=== PATIENT | female | born 1930 | race Caucasian/White ===

== ENCOUNTER → 2016-09-13 | Outpatient (REF) | payer MEDICARE ==
[~2016-09-13] MED LIST: DIOV320T; ESTR1TAB; HYDR25TA6; MAALOX; METAMUCIL; THERGRAN; TYL; TYLE500T53; VOLT75TA; actonel
[2016-09-13 15:22] LABS: PERCENT SATURATION 16.8 % (13.2-37.4)
== END ==
LOC: M LAB REF 14:58
PROVIDERS: ATTEND Internal Medicine
DX: M06.9 Rheumatoid arthritis, unspecified (principal); Z79.899 Other long term (current) drug therapy; Z98.890 Other specified postprocedural states

== ENCOUNTER 2017-08-28 16:50 | Emergency (ER) | payer MEDICARE ==
[2017-08-28 17:39] LABS: BASO % 0.1 % (0.0-1.0); HEMATOCRIT 29.6 % (36.0-47.0); HEMOGLOBIN 10.3 g/dl (12.0-15.5); IMMATURE GRANULOCYTE % 0.6 % (0-3.0); LYMPH # 0.9 10^3/uL (1.5-4.5); LYMPH % 4.2 % (24.0-44.0); MEAN CORPUSCULAR HEMOGLOBIN 32.8 pg (27.0-33.0); MEAN CORPUSCULAR HGB CONC 34.8 g/dl (32.0-36.5); MEAN CORPUSCULAR VOLUME 94.3 fl (80.0-96.0); MONO # 1.4 10^3/uL (0.0-0.8); MONO % 6.6 % (0.0-5.0); NEUTROPHILS % 88.5 % (36.0-66.0); PLATELET COUNT, AUTOMATED 214 10^3/uL (150-450); RED BLOOD COUNT 3.14 10^6/uL (4.00-5.40); RED CELL DISTRIBUTION WIDTH 11.9 % (11.5-14.5); WHITE BLOOD COUNT 21.5 10^3/uL (4.0-10.0)
[2017-08-28] MEDS: NS 500 ML IV (17:40)
[2017-08-28] MEDS: fentaNYL 100 MCG/2 ML INJECTION (J3010) IV (17:42)
[2017-08-28] MEDS: ONDANSETRON 4MG/2ML VIAL (J2405) IV (17:42)
[2017-08-28 18:13] LABS: ALBUMIN 3.6 GM/DL (3.2-5.2); ALBUMIN/GLOBULIN RATIO 1.71 (1.00-1.93); ALKALINE PHOSPHATASE 65 U/L (45-117); ALT/SGPT 18 U/L (12-78); ANION GAP 12 MEQ/L (8-16); AST/SGOT 30 U/L (7-37); BILIRUBIN,DIRECT 0.3 MG/DL (0.0-0.2); BLOOD UREA NITROGEN 20 MG/DL (7-18); CALCIUM LEVEL 8.9 MG/DL (8.8-10.2); CARBON DIOXIDE LEVEL 26 MEQ/L (21-32); CHLORIDE LEVEL 103 MEQ/L (98-107); CPK CREATINE PHOSPHOKINASE 375 U/L (26-192); CREATININE FOR GFR 1.24 MG/DL (0.55-1.30); GLOMERULAR FILTRATION RATE 43.8 (>32); GLUCOSE, FASTING 170 MG/DL (70-100); POTASSIUM SERUM 3.7 MEQ/L (3.5-5.1); SODIUM LEVEL 141 MEQ/L (136-145); TOTAL PROTEIN 5.7 GM/DL (6.4-8.2); TROPONIN I 0.73 NG/ML (< 0.10)
[2017-08-28 18:14] LABS: CK-MB VALUE MASS 16.8 NG/ML (<3.6); MB/CK RELATIVE INDEX 4.48 (< OR =4)
[2017-08-28] MEDS: MORPHINE 2 MG/ML 1ML SYRINGE (J2270) IV ×2 (18:39→20:30)
[2017-08-28] MEDS: NS 1,000 ML IV ×2 (18:39→21:19)
[2017-08-28 18:49] LABS: INR 1.03; PROTHROMBIN TIME 13.6 SECONDS (12.4-14.5)
[2017-08-28 18:50] LABS: PARTIAL THROMBOPLASTIN TIME 25.9 SECONDS (26.8-37.9)
[2017-08-28 20:21] LABS: CK-MB VALUE MASS 20.1 NG/ML (<3.6); CPK CREATINE PHOSPHOKINASE 436 U/L (26-192); MB/CK RELATIVE INDEX 4.61 (< OR =4); TROPONIN I 1.26 NG/ML (< 0.10)
== END 2017-08-28 21:46 | disposition short-term general hospital (02) ==
LOC: M ED 16:50
DX: S72.141A Displaced intertrochanteric fracture of right femur, initial encounter for closed fracture (principal); W01.0XXA Fall on same level from slipping, tripping and stumbling without subsequent striking against object, initial encounter; Y92.003 Bedroom of unspecified non-institutional (private) residence as the place of occurrence of the external cause; I45.10 Unspecified right bundle-branch block; I10 Essential (primary) hypertension; F17.210 Nicotine dependence, cigarettes, uncomplicated; M06.9 Rheumatoid arthritis, unspecified; Z88.0 Allergy status to penicillin; Z79.899 Other long term (current) drug therapy; Z98.890 Other specified postprocedural states
CPT/HCPCS: J2405

== ENCOUNTER 2017-09-04 15:35 | Inpatient (IN) | payer MEDICARE ==
[~2017-09-04 15:35] MED LIST changes: +BISACODYL 10 MG SUPP PR; +CALCIUM CARBONATE 500 MG CHEW U/D PO; -DIOV320T; -ESTR1TAB; -HYDR25TA6; -MAALOX; +MAALOX 30 ML SUSP *UDC PO; -METAMUCIL; +METAMUCIL (PSYLLIUM) PACKET PO; -THERGRAN; -TYL; -TYLE500T53; -VOLT75TA; -actonel
[2017-09-04] MEDS ORDERED: PILL CRUSHER/CUTTER 1 EACH XX (17:00)
[2017-09-04] MEDS: ACETAMINOPHEN 500 MG TAB PO (17:47)
[2017-09-04] MEDS: SENNA 8.6 MG TAB (SENOKOT) PO (21:00)
[2017-09-04] MEDS: oxyCODONE 5MG TAB PO (23:35)
[2017-09-05] MEDS: ACETAMINOPHEN 500 MG TAB PO ×3 (06:39→18:15)
[2017-09-05 06:43] LABS: BASO % 0.1 % (0.0-1.0); EOS # 0.3 10^3/uL (0.0-0.50); EOS % 3.9 % (0.0-3.0); HEMATOCRIT 22.9 % (36.0-47.0); HEMOGLOBIN 7.6 g/dl (12.0-15.5); IMMATURE GRANULOCYTE % 2.4 % (0-3.0); LYMPH # 1.6 10^3/uL (1.5-4.5); LYMPH % 19.8 % (24.0-44.0); MEAN CORPUSCULAR HEMOGLOBIN 33.2 pg (27.0-33.0); MEAN CORPUSCULAR HGB CONC 33.2 g/dl (32.0-36.5); MONO % 12.3 % (0.0-5.0); NEUTROPHILS # 5.1 10^3/uL (1.8-7.7); NEUTROPHILS % 61.5 % (36.0-66.0); PLATELET COUNT, AUTOMATED 193 10^3/uL (150-450); RED BLOOD COUNT 2.29 10^6/uL (4.00-5.40); RED CELL DISTRIBUTION WIDTH 14.6 % (11.5-14.5); WHITE BLOOD COUNT 8.3 10^3/uL (4.0-10.0)
[2017-09-05 07:01] LABS: ALBUMIN 1.9 GM/DL (3.2-5.2); ALBUMIN/GLOBULIN RATIO 0.76 (1.00-1.93); ALKALINE PHOSPHATASE 78 U/L (45-117); ALT/SGPT 44 U/L (12-78); ANION GAP 8 MEQ/L (8-16); AST/SGOT 52 U/L (7-37); BILIRUBIN,TOTAL 1.2 MG/DL (0.2-1.0); BLOOD UREA NITROGEN 14 MG/DL (7-18); CALCIUM LEVEL 7.5 MG/DL (8.8-10.2); CARBON DIOXIDE LEVEL 26 MEQ/L (21-32); CHLORIDE LEVEL 112 MEQ/L (98-107); GLOMERULAR FILTRATION RATE > 60.0 (>32); GLUCOSE, FASTING 88 MG/DL (70-100); POTASSIUM SERUM 3.7 MEQ/L (3.5-5.1); SODIUM LEVEL 146 MEQ/L (136-145); TOTAL PROTEIN 4.4 GM/DL (6.4-8.2)
[2017-09-05] MEDS ORDERED: ESTRADIOL 1 MG TAB PO (09:00)
[2017-09-05] MEDS ORDERED: VALSARTAN 80 MG TAB (DIOVAN) PO (09:00)
[2017-09-05] MEDS: ASCORBIC ACID 500 MG TAB PO (09:16)
[2017-09-05] MEDS: MULTIVITAMINS/MINERALS THERAP 1 TAB PO (09:17)
[2017-09-05] MEDS: VITAMIN D 1,000 INTERNATIONAL UNITS TABLET PO (09:17)
[2017-09-05] MEDS: HYDROXYCHLOROQUINE 200 MG TAB PO (09:17)
[2017-09-05] MEDS: LORATADINE 10 MG TAB PO (09:17)
[2017-09-05] MEDS: ENOXAPARIN 40 MG/0.4 ML SYRINGE (J1650) SC (09:17)
[2017-09-05] MEDS: MIRALAX *UNIT DOSE* 17GM PACKET PO (09:17)
[2017-09-05] MEDS: CEPHALEXIN 500 MG CAP PO ×2 (12:31→20:21)
[2017-09-05 14:58] LABS: IMMEDIATE SPIN CROSSMATCH 1 2
[2017-09-05] MEDS: SENNA 8.6 MG TAB (SENOKOT) PO (20:21)
[2017-09-05] MEDS: LACTOBACILLUS ACIDOPHILUS CAP (BACID) PO (20:21)
[2017-09-06] MEDS: oxyCODONE 5MG TAB PO (03:54)
[2017-09-06 06:24] LABS: HEMATOCRIT 32.5 % (36.0-47.0); MEAN CORPUSCULAR HEMOGLOBIN 32.4 pg (27.0-33.0); MEAN CORPUSCULAR HGB CONC 34.5 g/dl (32.0-36.5); MEAN CORPUSCULAR VOLUME 93.9 fl (80.0-96.0); PLATELET COUNT, AUTOMATED 234 10^3/uL (150-450); RED BLOOD COUNT 3.46 10^6/uL (4.00-5.40); RED CELL DISTRIBUTION WIDTH 15.1 % (11.5-14.5); WHITE BLOOD COUNT 9.4 10^3/uL (4.0-10.0)
[2017-09-06] MEDS: ACETAMINOPHEN 500 MG TAB PO ×3 (06:35→18:28)
[2017-09-06 06:43] LABS: HEMOGLOBIN 11.2 g/dl (12.0-15.5)
[2017-09-06 06:55] LABS: ALBUMIN 2.2 GM/DL (3.2-5.2); ALKALINE PHOSPHATASE 98 U/L (45-117); ALT/SGPT 47 U/L (12-78); ANION GAP 8 MEQ/L (8-16); AST/SGOT 52 U/L (7-37); BILIRUBIN,TOTAL 1.4 MG/DL (0.2-1.0); BLOOD UREA NITROGEN 17 MG/DL (7-18); CALCIUM LEVEL 7.4 MG/DL (8.8-10.2); CARBON DIOXIDE LEVEL 26 MEQ/L (21-32); CHLORIDE LEVEL 112 MEQ/L (98-107); CREATININE FOR GFR 0.49 MG/DL (0.55-1.30); FERRITIN 192 NG/ML (8-252); GLOMERULAR FILTRATION RATE > 60.0 (>32); GLUCOSE, FASTING 86 MG/DL (70-100); IRON (FE) 56 UG/DL (50-170); PERCENT SATURATION 27.6 % (13.2-45.0); POTASSIUM SERUM 4.3 MEQ/L (3.5-5.1); SODIUM LEVEL 146 MEQ/L (136-145); TOTAL IRON BINDING CAPACITY 203 UG/DL (250-450); TOTAL PROTEIN 4.2 GM/DL (6.4-8.2)
[2017-09-06] MEDS: MIRALAX *UNIT DOSE* 17GM PACKET PO (09:00)
[2017-09-06] MEDS: HYDROXYCHLOROQUINE 200 MG TAB PO (09:02)
[2017-09-06] MEDS: LACTOBACILLUS ACIDOPHILUS CAP (BACID) PO ×2 (09:02→20:04)
[2017-09-06] MEDS: VITAMIN D 1,000 INTERNATIONAL UNITS TABLET PO (09:02)
[2017-09-06] MEDS: LORATADINE 10 MG TAB PO (09:02)
[2017-09-06] MEDS: CEPHALEXIN 500 MG CAP PO ×2 (09:02→20:04)
[2017-09-06] MEDS: MULTIVITAMINS/MINERALS THERAP 1 TAB PO (09:02)
[2017-09-06] MEDS: ASCORBIC ACID 500 MG TAB PO (09:02)
[2017-09-06] MEDS: ENOXAPARIN 40 MG/0.4 ML SYRINGE (J1650) SC (09:05)
[2017-09-06] MEDS: SENNA 8.6 MG TAB (SENOKOT) PO (20:04)
[2017-09-07] MEDS: oxyCODONE 5MG TAB PO ×3 (01:34→21:59)
[2017-09-07 06:13] LABS: HEMATOCRIT 32.2 % (36.0-47.0); HEMOGLOBIN 10.8 g/dl (12.0-15.5); MEAN CORPUSCULAR HEMOGLOBIN 32.3 pg (27.0-33.0); MEAN CORPUSCULAR HGB CONC 33.5 g/dl (32.0-36.5); MEAN CORPUSCULAR VOLUME 96.4 fl (80.0-96.0); PLATELET COUNT, AUTOMATED 248 10^3/uL (150-450); RED BLOOD COUNT 3.34 10^6/uL (4.00-5.40); WHITE BLOOD COUNT 8.7 10^3/uL (4.0-10.0)
[2017-09-07] MEDS: ACETAMINOPHEN 500 MG TAB PO ×3 (06:50→17:40)
[2017-09-07] MEDS: LACTOBACILLUS ACIDOPHILUS CAP (BACID) PO ×2 (08:25→21:59)
[2017-09-07] MEDS: VITAMIN D 1,000 INTERNATIONAL UNITS TABLET PO (08:25)
[2017-09-07] MEDS: MULTIVITAMINS/MINERALS THERAP 1 TAB PO (08:25)
[2017-09-07] MEDS: ASCORBIC ACID 500 MG TAB PO (08:26)
[2017-09-07] MEDS: CEPHALEXIN 500 MG CAP PO ×2 (08:26→21:58)
[2017-09-07] MEDS: HYDROXYCHLOROQUINE 200 MG TAB PO (08:26)
[2017-09-07] MEDS: ENOXAPARIN 40 MG/0.4 ML SYRINGE (J1650) SC (08:26)
[2017-09-07] MEDS: LORATADINE 10 MG TAB PO (08:26)
[2017-09-07] MEDS: MIRALAX *UNIT DOSE* 17GM PACKET PO (08:26)
[2017-09-07] MEDS: SENNA 8.6 MG TAB (SENOKOT) PO (21:59)
[2017-09-08] MEDS: oxyCODONE 5MG TAB PO ×2 (03:19→21:42)
[2017-09-08] MEDS: ACETAMINOPHEN 500 MG TAB PO ×3 (06:08→18:25)
[2017-09-08] MEDS: MIRALAX *UNIT DOSE* 17GM PACKET PO (09:45)
[2017-09-08] MEDS: HYDROXYCHLOROQUINE 200 MG TAB PO (09:45)
[2017-09-08] MEDS: VITAMIN D 1,000 INTERNATIONAL UNITS TABLET PO (09:45)
[2017-09-08] MEDS: ENOXAPARIN 40 MG/0.4 ML SYRINGE (J1650) SC (09:45)
[2017-09-08] MEDS: ASCORBIC ACID 500 MG TAB PO (09:45)
[2017-09-08] MEDS: LACTOBACILLUS ACIDOPHILUS CAP (BACID) PO ×2 (09:45→21:41)
[2017-09-08] MEDS: MULTIVITAMINS/MINERALS THERAP 1 TAB PO (09:45)
[2017-09-08] MEDS: LORATADINE 10 MG TAB PO (09:45)
[2017-09-08 12:13] LABS: FOLATE 11.6 NG/ML (>5.4); VITAMIN B12 LEVEL 834 PG/ML (247-911)
[2017-09-08] MEDS: SENNA 8.6 MG TAB (SENOKOT) PO (21:41)
[2017-09-09] MEDS: ACETAMINOPHEN 500 MG TAB PO ×3 (05:33→18:11)
[2017-09-09 06:35] LABS: HEMATOCRIT 32.5 % (36.0-47.0); HEMOGLOBIN 10.9 g/dl (12.0-15.5); MEAN CORPUSCULAR HEMOGLOBIN 32.8 pg (27.0-33.0); MEAN CORPUSCULAR HGB CONC 33.5 g/dl (32.0-36.5); MEAN CORPUSCULAR VOLUME 97.9 fl (80.0-96.0); PLATELET COUNT, AUTOMATED 261 10^3/uL (150-450); RED BLOOD COUNT 3.32 10^6/uL (4.00-5.40); RED CELL DISTRIBUTION WIDTH 15.3 % (11.5-14.5); WHITE BLOOD COUNT 10.3 10^3/uL (4.0-10.0)
[2017-09-09 06:59] LABS: ALBUMIN 2.2 GM/DL (3.2-5.2); ALBUMIN/GLOBULIN RATIO 0.88 (1.00-1.93); ALKALINE PHOSPHATASE 138 U/L (45-117); ALT/SGPT 49 U/L (12-78); ANION GAP 9 MEQ/L (8-16); AST/SGOT 47 U/L (7-37); BILIRUBIN,TOTAL 1.3 MG/DL (0.2-1.0); BLOOD UREA NITROGEN 18 MG/DL (7-18); CALCIUM LEVEL 7.6 MG/DL (8.8-10.2); CARBON DIOXIDE LEVEL 25 MEQ/L (21-32); CHLORIDE LEVEL 109 MEQ/L (98-107); CREATININE FOR GFR 0.55 MG/DL (0.55-1.30); GLOMERULAR FILTRATION RATE > 60.0 (>32); GLUCOSE, FASTING 94 MG/DL (70-100); SODIUM LEVEL 143 MEQ/L (136-145); TOTAL PROTEIN 4.7 GM/DL (6.4-8.2)
[2017-09-09] MEDS: MIRALAX *UNIT DOSE* 17GM PACKET PO (10:39)
[2017-09-09] MEDS: VITAMIN D 1,000 INTERNATIONAL UNITS TABLET PO (10:40)
[2017-09-09] MEDS: ASCORBIC ACID 500 MG TAB PO (10:40)
[2017-09-09] MEDS: ENOXAPARIN 40 MG/0.4 ML SYRINGE (J1650) SC (10:40)
[2017-09-09] MEDS: MULTIVITAMINS/MINERALS THERAP 1 TAB PO (10:40)
[2017-09-09] MEDS: HYDROXYCHLOROQUINE 200 MG TAB PO (10:40)
[2017-09-09] MEDS: LORATADINE 10 MG TAB PO (10:40)
[2017-09-09] MEDS: FAMOTIDINE 20 MG TAB PO ×2 (11:54→20:24)
[2017-09-09] MEDS ORDERED: LIDOCAINE 5% OINT 30 GM TOP (12:00)
[2017-09-09] MEDS: SENNA 8.6 MG TAB (SENOKOT) PO (20:24)
[2017-09-10] MEDS: oxyCODONE 5MG TAB PO ×2 (00:06→05:53)
[2017-09-10] MEDS: ACETAMINOPHEN 500 MG TAB PO ×3 (05:53→17:45)
[2017-09-10 08:05] LABS: HEMOGLOBIN 10.2 g/dl (12.0-15.5); MEAN CORPUSCULAR VOLUME 97.1 fl (80.0-96.0); PLATELET COUNT, AUTOMATED 263 10^3/uL (150-450); RED BLOOD COUNT 3.09 10^6/uL (4.00-5.40); RED CELL DISTRIBUTION WIDTH 15.1 % (11.5-14.5); WHITE BLOOD COUNT 11.1 10^3/uL (4.0-10.0)
[2017-09-10 08:26] LABS: ALBUMIN 2.2 GM/DL (3.2-5.2); ALBUMIN/GLOBULIN RATIO 1.16 (1.00-1.93); ALKALINE PHOSPHATASE 125 U/L (45-117); ALT/SGPT 46 U/L (12-78); ANION GAP 10 MEQ/L (8-16); AST/SGOT 43 U/L (7-37); BILIRUBIN,TOTAL 1.2 MG/DL (0.2-1.0); BLOOD UREA NITROGEN 17 MG/DL (7-18); CALCIUM LEVEL 7.3 MG/DL (8.8-10.2); CARBON DIOXIDE LEVEL 25 MEQ/L (21-32); CHLORIDE LEVEL 109 MEQ/L (98-107); CREATININE FOR GFR 0.46 MG/DL (0.55-1.30); GLOMERULAR FILTRATION RATE > 60.0 (>32); GLUCOSE, FASTING 84 MG/DL (70-100); POTASSIUM SERUM 4.4 MEQ/L (3.5-5.1); SODIUM LEVEL 144 MEQ/L (136-145); TOTAL PROTEIN 4.1 GM/DL (6.4-8.2)
[2017-09-10] MEDS: FAMOTIDINE 20 MG TAB PO ×2 (08:56→21:41)
[2017-09-10] MEDS: MULTIVITAMINS/MINERALS THERAP 1 TAB PO (08:56)
[2017-09-10] MEDS: MIRALAX *UNIT DOSE* 17GM PACKET PO (08:56)
[2017-09-10] MEDS: ASCORBIC ACID 500 MG TAB PO (08:56)
[2017-09-10] MEDS: HYDROXYCHLOROQUINE 200 MG TAB PO (08:56)
[2017-09-10] MEDS: LORATADINE 10 MG TAB PO (08:56)
[2017-09-10] MEDS: ASPIRIN ENTERIC 325 MG TAB PO ×2 (08:57→21:41)
[2017-09-10] MEDS: VITAMIN D 1,000 INTERNATIONAL UNITS TABLET PO (08:57)
[2017-09-10 11:38] LABS: HEPATITIS B SURFACE ANTIGEN NEGATIVE (NEGATIVE)
[2017-09-10 12:05] LABS: HEPATITIS C VIRUS ABY INDEX 0.1 INDEX (<0.8)
[2017-09-10 12:06] LABS: HEPATITIS B CORE ANTIBODY IGM NEGATIVE (NEGATIVE)
[2017-09-10 12:08] LABS: HEPATITIS A ANTIBODY IGM NEGATIVE (NEGATIVE)
[2017-09-10 13:06] LABS: KETONE, URINE AUTO RFX NEGATIVE (NEGATIVE); MUCUS, URINE RFX SMALL (NEGATIVE); NITRITE, URINE AUTO RFX NEGATIVE (NEGATIVE); RBC, URINE AUTO RFX 79 /HPF (0-3); SPECIFIC GRAVITY UR AUTO RFX 1.018 (1.002-1.035); SQUAM EPITHELIAL CELL UR AURFX 5 /HPF (0-6); TRANSITIONAL EPITHELIAL AU RFX 5 /HPF
[2017-09-10 13:07] LABS: LEUKOCYTE ESTERASE UR AUTO RFX 3+ (NEGATIVE); WBC, URINE AUTO RFX TNTC /HPF (0-3)
[2017-09-10] MEDS: SENNA 8.6 MG TAB (SENOKOT) PO (21:41)
[2017-09-11] MEDS: ACETAMINOPHEN 500 MG TAB PO ×2 (06:45→12:30)
[2017-09-11 07:41] LABS: BASO % 0.1 % (0.0-1.0); EOS # 0.1 10^3/uL (0.0-0.50); EOS % 0.9 % (0.0-3.0); HEMATOCRIT 31.7 % (36.0-47.0); HEMOGLOBIN 10.6 g/dl (12.0-15.5); IMMATURE GRANULOCYTE % 0.7 % (0-3.0); LYMPH # 1.5 10^3/uL (1.5-4.5); LYMPH % 13.5 % (24.0-44.0); MEAN CORPUSCULAR HEMOGLOBIN 32.6 pg (27.0-33.0); MEAN CORPUSCULAR HGB CONC 33.4 g/dl (32.0-36.5); MEAN CORPUSCULAR VOLUME 97.5 fl (80.0-96.0); MONO # 1.2 10^3/uL (0.0-0.8); MONO % 10.5 % (0.0-5.0); NEUTROPHILS # 8.3 10^3/uL (1.8-7.7); NEUTROPHILS % 74.3 % (36.0-66.0); PLATELET COUNT, AUTOMATED 285 10^3/uL (150-450); RED BLOOD COUNT 3.25 10^6/uL (4.00-5.40); RED CELL DISTRIBUTION WIDTH 15.1 % (11.5-14.5); WHITE BLOOD COUNT 11.2 10^3/uL (4.0-10.0)
[2017-09-11 07:46] LABS: ANION GAP 8 MEQ/L (8-16); BLOOD UREA NITROGEN 18 MG/DL (7-18); CALCIUM LEVEL 7.7 MG/DL (8.8-10.2); CARBON DIOXIDE LEVEL 25 MEQ/L (21-32); CHLORIDE LEVEL 109 MEQ/L (98-107); CREATININE FOR GFR 0.56 MG/DL (0.55-1.30); GLOMERULAR FILTRATION RATE > 60.0 (>32); GLUCOSE, FASTING 91 MG/DL (70-100); POTASSIUM SERUM 4.3 MEQ/L (3.5-5.1); SODIUM LEVEL 142 MEQ/L (136-145)
[2017-09-11] MEDS: MIRALAX *UNIT DOSE* 17GM PACKET PO (09:00)
[2017-09-11] MEDS: ASCORBIC ACID 500 MG TAB PO (09:13)
[2017-09-11] MEDS: MULTIVITAMINS/MINERALS THERAP 1 TAB PO (09:13)
[2017-09-11] MEDS: ASPIRIN ENTERIC 325 MG TAB PO ×2 (09:13→20:46)
[2017-09-11] MEDS: HYDROXYCHLOROQUINE 200 MG TAB PO (09:13)
[2017-09-11] MEDS: LORATADINE 10 MG TAB PO (09:14)
[2017-09-11] MEDS: FAMOTIDINE 20 MG TAB PO ×2 (09:14→20:47)
[2017-09-11] MEDS: VITAMIN D 1,000 INTERNATIONAL UNITS TABLET PO (09:14)
[2017-09-11] MEDS: LACTOBACILLUS ACIDOPHILUS CAP (BACID) PO ×2 (12:30→20:47)
[2017-09-11] MEDS: BACTRIM 160MG/800MG DS TAB PO ×2 (12:30→20:47)
[2017-09-11] MEDS: SENNA 8.6 MG TAB (SENOKOT) PO (20:47)
[2017-09-12] MEDS: MIRALAX *UNIT DOSE* 17GM PACKET PO (09:00)
[2017-09-12] MEDS: MULTIVITAMINS/MINERALS THERAP 1 TAB PO (09:43)
[2017-09-12] MEDS: ASPIRIN ENTERIC 325 MG TAB PO (09:43)
[2017-09-12] MEDS: ASCORBIC ACID 500 MG TAB PO (09:43)
[2017-09-12] MEDS: BACTRIM 160MG/800MG DS TAB PO (09:44)
[2017-09-12] MEDS: VITAMIN D 1,000 INTERNATIONAL UNITS TABLET PO (09:44)
[2017-09-12] MEDS: FAMOTIDINE 20 MG TAB PO (09:45)
[2017-09-12] MEDS: HYDROXYCHLOROQUINE 200 MG TAB PO (09:45)
[2017-09-12] MEDS: LORATADINE 10 MG TAB PO (09:45)
[2017-09-12] MEDS ORDERED: ACETAMINOPHEN TAB 650MG DOSE (2X325MG) PO (09:45)
[2017-09-12] MEDS: LACTOBACILLUS ACIDOPHILUS CAP (BACID) PO (09:45)
[2017-09-12 10:28] LABS: HEMATOCRIT 32.7 % (36.0-47.0); HEMOGLOBIN 10.8 g/dl (12.0-15.5); PLATELET COUNT, AUTOMATED 350 10^3/uL (150-450); RED BLOOD COUNT 3.27 10^6/uL (4.00-5.40); RED CELL DISTRIBUTION WIDTH 15.4 % (11.5-14.5); WHITE BLOOD COUNT 10.2 10^3/uL (4.0-10.0)
[2017-09-12 10:49] LABS: ALBUMIN 2.7 GM/DL (3.2-5.2); ALBUMIN/GLOBULIN RATIO 1.23 (1.00-1.93); ALKALINE PHOSPHATASE 157 U/L (45-117); ALT/SGPT 44 U/L (12-78); ANION GAP 9 MEQ/L (8-16); AST/SGOT 41 U/L (7-37); BILIRUBIN,TOTAL 0.9 MG/DL (0.2-1.0); BLOOD UREA NITROGEN 16 MG/DL (7-18); CALCIUM LEVEL 7.8 MG/DL (8.8-10.2); CARBON DIOXIDE LEVEL 23 MEQ/L (21-32); CHLORIDE LEVEL 110 MEQ/L (98-107); CREATININE FOR GFR 0.68 MG/DL (0.55-1.30); GLOMERULAR FILTRATION RATE > 60.0 (>32); GLUCOSE, FASTING 83 MG/DL (70-100); POTASSIUM SERUM 4.9 MEQ/L (3.5-5.1); SODIUM LEVEL 142 MEQ/L (136-145); TOTAL PROTEIN 4.9 GM/DL (6.4-8.2)
[2017-09-12] MEDS ORDERED: NITROFURANTOIN (MACROBID) 100 MG CAP PO (21:00)
== END 2017-09-12 15:25 | disposition home health service (06) | DRG 559 ==
LOC: M PM&R 15:35
PROC: 30233N1 Transfusion of Nonautologous Red Blood Cells into Peripheral Vein, Percutaneous Approach (ICD-10-PCS; principal; 2017-09-05)
DX: S72.141D Displaced intertrochanteric fracture of right femur, subsequent encounter for closed fracture with routine healing (principal); E43 Unspecified severe protein-calorie malnutrition; D62 Acute posthemorrhagic anemia; M62.82 Rhabdomyolysis; N39.0 Urinary tract infection, site not specified; Z68.1 Body mass index [BMI] 19.9 or less, adult; I10 Essential (primary) hypertension; E55.9 Vitamin D deficiency, unspecified; S90.822D Blister (nonthermal), left foot, subsequent encounter; J44.9 Chronic obstructive pulmonary disease, unspecified; R94.5 Abnormal results of liver function studies; R26.81 Unsteadiness on feet; J30.9 Allergic rhinitis, unspecified; F17.210 Nicotine dependence, cigarettes, uncomplicated; K21.9 Gastro-esophageal reflux disease without esophagitis; M06.9 Rheumatoid arthritis, unspecified; W18.09XD Striking against other object with subsequent fall, subsequent encounter; Y92.9 Unspecified place or not applicable; Z96.642 Presence of left artificial hip joint; Z79.899 Other long term (current) drug therapy; Z88.0 Allergy status to penicillin; Z90.710 Acquired absence of both cervix and uterus; Z79.01 Long term (current) use of anticoagulants

== ENCOUNTER → 2018-12-29 | Outpatient (CLI) | payer MEDICARE ==
[~2018-12-29] MED LIST changes: +ASPI-527 PO; -BISACODYL 10 MG SUPP PR; +CALC1TAB9 PO; -CALCIUM CARBONATE 500 MG CHEW U/D PO; +CEPH500C PO; +CLAR10CA3 PO; +DIOV320T; +DULC10SU2 PR; +ESTR1TAB; +FAMO20TA PO; +HYDR200T3; +HYDR200T3 PO; +HYDR25TA6; +LORA-243; +LOVE1INJ2 SC; +MAALOX; -MAALOX 30 ML SUSP *UDC PO; +MACR100C43 PO; +META48.54 PO; +METAMUCIL; -METAMUCIL (PSYLLIUM) PACKET PO; +MIRA3350 PO; +OXYC-517 PO; +RISATAB3 PO; +SENN8.6T17 PO; +SULF1TAB93 PO; +THERGRAN; +TUMS500C PO; +TYL; +TYLE325T5 PO; +TYLE500T53; +VALS1TAB68; +VITA2000; +VITA200015 PO; +VITA500T PO; +VOLT75TA; +actonel
--- NOTE | 2018-12-29 16:01 | REP ---
Right lower extremity Duplex Doppler venous ultrasound: Real time compression and duplex Doppler interrogation of the right lower extremity deep venous system is performed. The right common femoral, superficial femoral and popliteal veins are fully compressible with transducer pressure and demonstrate normal spontaneous and phasic flow, without evidence of deep venous thrombosis. Impression: No evidence of deep venous thrombosis of the right lower extremity femoral popliteal venous system. Electronically Signed by Bal Pagan MD 12/29/2018 03:52 P
== END ==
LOC: M RAD 14:45
PROVIDERS: ATTEND Internal Medicine
DX: M79.661 Pain in right lower leg (principal); M79.89 Other specified soft tissue disorders

== ENCOUNTER 2020-10-10 14:35 | Inpatient (IN) | payer MEDICARE ==
[~2020-10-10] VITALS: Ht 165.1 cm; Wt 45.5 kg
[~2020-10-10 14:35] MED LIST changes: +BACTDSTA PO; -SULF1TAB93 PO; +VITA-243 PO; -VITA500T PO
[2020-10-10 17:37] LABS: BASO % 0.1 % (0.0-1.0); EOS # 0.1 10^3/uL (0.0-0.5); EOS % 0.6 % (0.0-3.0); HEMATOCRIT 36.2 % (36.0-47.0); LYMPH % 9.2 % (24.0-44.0); MEAN CORPUSCULAR HEMOGLOBIN 32.3 pg (27.0-33.0); MEAN CORPUSCULAR HGB CONC 33.1 g/dl (32.0-36.5); MEAN CORPUSCULAR VOLUME 97.6 fl (80.0-96.0); MONO # 0.8 10^3/uL (0.0-0.8); MONO % 7.8 % (2.0-8.0); NEUTROPHILS # 8.6 10^3/uL (1.5-8.5); NEUTROPHILS % 81.6 % (36.0-66.0); PLATELET COUNT, AUTOMATED 172 10^3/uL (150-450); RED BLOOD COUNT 3.71 10^6/uL (4.00-5.40); WHITE BLOOD COUNT 10.5 10^3/uL (4.0-10.0)
[2020-10-10 18:21] LABS: ERYTHROCYTE SEDIMENTATION RATE 21 mm/hr (0-30)
--- NOTE | 2020-10-10 18:58 | REP ---
INDICATION: RLE swelling, calf pain. COMPARISON: Right lower extremity deep vein duplex ultrasound dated 01/29/2019. TECHNIQUE: Deep vein duplex ultrasound of the right lower extremity. FINDINGS: There is no deep vein thrombus on the comparison study in the right lower extremity On the study today the right lower extremity deep veins demonstrate normal compression, normal Doppler color flow and normal Doppler waveforms with respiration augmentation at multiple levels. Additionally, the contralateral left common femoral vein demonstrates normal compression and color flow with no evidence of thrombus. IMPRESSION: No evidence of deep vein thrombus in the right lower extremity. <Electronically signed by Bal Olvera > 10/10/20 [id number]
[2020-10-10] MEDS ORDERED: [UNRECOGNIZED DRUG - CODE] OU (19:20)
[2020-10-10] MEDS ORDERED: ACET-907 PO (19:20)
[2020-10-10] MEDS ORDERED: VITA200016 PO (19:20)
[2020-10-10] MEDS ORDERED: LORA-674 PO (19:20)
[2020-10-10] MEDS ORDERED: FURO20TA2 PO (19:20)
[2020-10-10] MEDS ORDERED: HYDR-3782 PO (19:20)
[2020-10-10] MEDS ORDERED: ceFAZolin SOD 1 GM in D5W MINI-BAG PLUS 50 ML IV ONE (19:45)
[2020-10-10 20:22] LABS: ALBUMIN 3.5 GM/DL (3.2-5.2); BILIRUBIN,TOTAL 1.4 MG/DL (0.2-1.0); C REACTIVE PROTEIN QUANTITATIV 3.11 MG/DL (0.00-0.30); CALCIUM LEVEL 9.1 MG/DL (8.8-10.2); CREATININE FOR GFR 0.97 MG/DL (0.55-1.30); GLOMERULAR FILTRATION RATE 57.7 (>32); POTASSIUM SERUM 3.8 MEQ/L (3.5-5.1); TOTAL PROTEIN 6.2 GM/DL (6.4-8.2)
[2020-10-10 20:35] LABS: RSV AMPLIFICATION NEGATIVE (NEGATIVE)
[2020-10-10] MEDS ORDERED: MAALOX 30 ML SUSP *UDC PO PRN (21:05)
[2020-10-10] MEDS ORDERED: MOM 30ML SUSPENSION UDC PO PRN (21:05)
--- NOTE | 2020-10-10 21:08 | HPEPDOC ---
[facility] Medical History & Physical Date of Admission Oct 10, 2020 Date of Service: Oct 10, 2020 Attending Physician: LG NUNN MD History and Physical CHIEF COMPLAINT: [89 y/o female c/o lower leg swelling] HISTORY OF PRESENT ILLNESS: [This is an 89 y/o female with a pmh of htn, gerd, ra and copd who presents to our ED on 10/10 with a cc of lower leg swelling that has been going on since her last hip operation. Patient tells me that she does not know exactly when her operation was. Most recent hip operation I can find in our system was in august of 2017. Patient states that ever since her hip injury, she has been unable to bend down to change her socks, and does not know the last time her socks were changed. According to ED staff, patients socks were crusted to her legs and when removed showed many layers of skin and maggots in the right heel. Patient tells me that her legs are somewhat painful. Patient tells me that she lives alone and she is able to get around her home with a walker for assistance. Patient states that family comes to the home to help her get groceries and care for herself. Patient states that she is able to cook, clean and bathe herself. Patient states that besides her legs, she feels fine. Patient, at the time of my exam, denies fevers, chills, cough, sob, chest pain, palpitations, abd pain, n/v/d/c, recent falls. ] PAST MEDICAL HISTORY: 1. [See HPI PAST SURGICAL HISTORY: 1. [R hip ORIF]. 2. [Left hip total arthroplasty]. 3. [Left knee total arthroplasty 4. B/l breast lumpectomy 5. Hysterectomy]. SOCIAL HISTORY: Resides in: [Lives at home alone. Patient and family member in the room state that patient has people coming to the house to help her.] Tobacco use:[Current smoker - states she smokes 1-2 cigarettes a day currently.] ETOH: [Denies] Illicit drug use: [Denies] FAMILY HISTORY: Reviewed - none pertinent ALLERGIES: Please see below. REVIEW OF SYSTEMS: CONSTITUTIONAL: [See HPI]. HEENT: [Denies uri sx]. CARDIOVASCULAR: [See HPI]. RESPIRATORY: [See HPI]. GASTROINTESTINAL: [See HPI]. GENITOURINARY: [Denies dysuria]. SKIN: [See HPI]. MUSCULOSKELETAL: [Denies acute joint/back pain]. NEUROLOGICAL: [Denies syncope, paresthesias]. ENDOCRINE: [Denies hx of DM]. HEMATOLOGIC/LYMPHATIC: [Denies easy bruising]. HOME MEDICATIONS: Please see below. PHYSICAL EXAMINATION: VITAL SIGNS: Please see below. GENERAL APPEARANCE: [This is a frail appearing 89 y/o female. Her appearance is disheveled and her hair is unwashed. ED staff reportedly had to throw some of her clothes away upon arrival because they were soiled with feces and urine. Patient is alert and oriented to questioning but does not appear to always understand what I am telling her about upcoming treatment. She does not appear to be in any distress.]. HEENT: [Somewhat hard of hearing. No mass or lesion. EOMI. No scleral icterus. Nares patent. Oral mucosa moist.]. CARDIOVASCULAR: [Regular rate, rhythm. No murmurs, rubs, gallops]. LUNGS: [Decreased breath sounds b/l. No wheezing, rales, rhonchi]. ABDOMEN: [Soft, nontender]. MUSCULOSKELETAL: [No joint deformity noted]. EXTREMITIES: [Lower extremities are covered with layers of , peeling and macerated skin from the knee down. Skin that is dusky brown in color consistent with chronic venous insufficiency. The right lower extremity is grossly edematous with erythema from ankle to proximal lower leg. There are several small ulcerations of the right leg particularly on and around the ankle joint. The wounds are open and appear to be draining serosanguineous fluid. There is severe halux valgus deformity of b/l great toes. There is maceration and peeling skin between all of the toes of b/l feet. ]. NEUROLOGICAL: [Speech clear. Patient A+Ox3 but confused at times. No focal deficit]. PSYCHIATRIC: [Mood and affect appear appropriate.]. LABORATORY DATA: See below. IMAGING: [Vascular US: FINDINGS: There is no deep vein thrombus on the comparison study in the right lower extremity On the study today the right lower extremity deep veins demonstrate normal compression, normal Doppler color flow and normal Doppler waveforms with respiration augmentation at multiple levels. Additionally, the contralateral left common femoral vein demonstrates normal compression and color flow with no evidence of thrombus. IMPRESSION: No evidence of deep vein thrombus in the right lower extremity.] MICROBIOLOGY: Please see below. ASSESSMENT: [This is an 89 y/o female with a pmh of htn, gerd, ra and copd who presents to our ED on 10/10 with a cc of lower leg swelling that has been going on since her last hip operation. Patient tells me that she does not know exactly when her operation was. Most recent hip operation I can find in our system was in august of 2017. According to ED staff, patients socks were crusted to her legs and when removed showed many layers of skin and maggots in the right heel. Patient is currently living on her own and does not appear to be adequately caring for herself]. . PLAN: 1. [Lower extremity cellulitis/multiple ulcerations - Patient has been inconsistently changing her socks for some time. There is dramatic skin breakdown and cellulitis as stated above. - Patient not meeting sirs/sepsis criteria at this time - Day team should consider wound consult for care of ulcerations and desquamation - DVT ruled out in the ED - Discussed with patient possible placement. Patient is adamant that she does not want to be placed into assisted living or snf setting. Patient is amiable to the idea of home health. PFS consult placed. - Begin doxycycline iv bid for cellulitis - Admit to med surg for iv abx and wound care 2. HTN - continue lasix 3. RA - continue plaquenil 4. Nicotine dependence - Patient has refused patch at this time ]. DVT prophylaxis - lovenox ordered Vital Signs Vital Signs Date Time Temp Pulse Resp B/P (MAP) Pulse Ox O2 Delivery O2 Flow Rate FiO2 10/10/20 14:46 97.7 91 20 152/67 (95) 99 Room Air Laboratory Data Labs 24H Laboratory Tests 2 10/10/20 17:28: Immature Granulocyte % (Auto) 0.7, Neutrophils (%) (Auto) 81.6H, Lymphocytes (%) (Auto) 9.2L, Monocytes (%) (Auto) 7.8, Eosinophils (%) (Auto) 0.6, Basophils (%) (Auto) 0.1, Neutrophils # (Auto) 8.6H, Lymphocytes # (Auto) 1.0L, Monocytes # (Auto) 0.8, Eosinophils # (Auto) 0.1, Basophils # (Auto) 0.0, Nucleated Red Blood Cells % (auto) 0.0, Erythrocyte Sedimentation Rate 10/10/20 19:28: Coronavirus (COVID-19)(PCR) NEGATIVE, Influenza Type A (RT-PCR) NEGATIVE, Influenza Type B (RT-PCR) NEGATIVE, Respiratory Syncytial Virus (PCR) NEGATIVE 10/10/20 19:34: Anion Gap 9, Glomerular Filtration Rate 57.7, Calcium Level 9.1, Total Bilirubin 1.4H, Aspartate Amino Transf (AST/SGOT) 31, Alanine Aminotransferase (ALT/SGPT) 16, Alkaline Phosphatase 66, C-Reactive Protein, Quantitative 3.11H, Total Protein 6.2L, Albumin 3.5, Albumin/Globulin Ratio 1.3 CBC/BMP Laboratory Tests 10/10/20 17:28 10/10/20 19:34 Microbiology Microbiology 10/10/20 Blood Culture, Received Pending 10/10/20 Blood Culture, Received Pending Home Medications Scheduled Cholecalciferol (Vitamin D3) (Vitamin D3) 50 Mcg Capsule, 50 MCG PO DAILY Furosemide (Furosemide) 20 Mg Tablet, 20 MG PO DAILY Hydroxychloroquine Sulfate (Hydroxychloroquine Sulfate) 200 Mg Tablet, 200 MG PO DAILY Loratadine (Loratadine) 10 Mg Tablet, 10 MG PO DAILY Scheduled PRN Acetaminophen (Tylenol) 325 Mg Tablet, 325 MG PO QID PRN for MINOR DISCOMFORT Peg 400/Hypromellose/Glycerin (Visine Tears Drops) 15 Ml Drops, 1 DROP OU QID PRN for DRY EYES Allergies Coded Allergies: Penicillins (Verified Allergy, Unknown, 10/10/20) Sulfa (Sulfonamide Antibiotics) (Verified Allergy, Unknown, 10/10/20) A-FIB/CHADSVASC A-FIB History Current/History of A-Fib/PAF?: No MYA BACH Oct 10, 2020 21:08
[2020-10-10] MEDS: ACETAMINOPHEN TAB 650MG DOSE (2X325MG) PO PRN (23:25)
[2020-10-10 23:50] VITALS: BP 144/73
[2020-10-11 00:26] LABS: INR 1.01; PROTHROMBIN TIME 13.7 SECONDS (12.7-14.5)
[2020-10-11 00:27] LABS: PARTIAL THROMBOPLASTIN TIME 31.4 SECONDS (25.9-37.0)
[2020-10-11] MEDS: ACETAMINOPHEN TAB 650MG DOSE (2X325MG) PO PRN (02:03)
[2020-10-11] MEDS: DOXYCYCLINE HYCLATE 100 MG in D5W MINI-BAG PLUS 100 ML IV SCH ×3 (02:03→21:24)
[2020-10-11 06:13] VITALS: BP 110/58
[2020-10-11] MEDS ORDERED: HOME MED LIST COMPLETE! XX SCH (07:30)
[2020-10-11 08:12] LABS: HEMATOCRIT 30.3 % (36.0-47.0); HEMOGLOBIN 10.1 g/dl (12.0-15.5); MEAN CORPUSCULAR HEMOGLOBIN 32.3 pg (27.0-33.0); MEAN CORPUSCULAR HGB CONC 33.3 g/dl (32.0-36.5); MEAN CORPUSCULAR VOLUME 96.8 fl (80.0-96.0); PLATELET COUNT, AUTOMATED 141 10^3/uL (150-450); RED BLOOD COUNT 3.13 10^6/uL (4.00-5.40); WHITE BLOOD COUNT 6.7 10^3/uL (4.0-10.0)
[2020-10-11] MEDS: ENOXAPARIN 30MG/0.3ML SYRINGE (J1650 PER 10MG) SC SCH (08:27)
[2020-10-11] MEDS: DOCUSATE SODIUM 100MG CAPSULE PO SCH ×2 (08:27→21:24)
[2020-10-11 08:28] LABS: BLOOD UREA NITROGEN 18 MG/DL (7-18); CALCIUM LEVEL 8.4 MG/DL (8.8-10.2); CARBON DIOXIDE LEVEL 32 MEQ/L (21-32); CHLORIDE LEVEL 107 MEQ/L (98-107); GLOMERULAR FILTRATION RATE > 60.0 (>32); GLUCOSE, FASTING 81 MG/DL (70-100); MAGNESIUM LEVEL 2.1 MG/DL (1.8-2.4); POTASSIUM SERUM 3.3 MEQ/L (3.5-5.1); SODIUM LEVEL 145 MEQ/L (136-145)
[2020-10-11] MEDS: POTASSIUM CHLORIDE 10 MEQ SR TABLET PO SCH ×2 (12:46→14:54)
[2020-10-11 14:00] VITALS: BP 101/47
--- NOTE | 2020-10-11 14:33 | IPNPDOC ---
Text Note Date of Service The patient was seen on 10/11/20. NOTE Subjective: Patient is an 89-year-old female who presented to the hospital with foot pain. Patient states that she has been unable to bend over and change her socks and does not know the last time her socks were changed. According to ED staff, patient socks were crusted to her legs and have removed with scissors and when they removed showed many layers of skin and maggots in the right heel. Patient states that her legs are painful. Patient states she is otherwise f eeling well at this time. Review of systems: General: Patient denies fevers HEENT: Patient denies headaches Cardiovascular: Patient denies chest pain Respiratory: Patient denies shortness of breath, cough GI: Patient denies abdominal pain, nausea, vomiting, diarrhea : Patient denies increased frequency or pain with urination Extremities: Patient reports pain in her feet bilaterally Physical exam: Vitals: See below General: Alert and oriented female patient who was laying in bed when I walked in the room. Patient did not appear to be in any acute distress. HEENT: Normocephalic, atraumatic, moist mucous membranes. Neck: No lymphadenopathy or thyromegaly Cardiac: Regular rate and rhythm, no murmurs, normal S1, normal S2 Pulm: Clear to auscultation bilaterally. No wheezes, rhonchi, rales Abd: Nondistended, nontender to palpation, normal bowel sounds Ext: Scaling of the skin from the mid persaud down through the feet with swelling in the bilateral lower extremities with some maceration of the skin around the right anterior ankle. There is severe hallux valgus deformities of bilateral great toes. No areas of purulent drainage. Labs: See below Imaging: No new imaging has been performed Assessment/plan: 89-year-old female who presented with foot pain with the inability to care for herself who was unable to take her socks off showing maceration and possible infection of her skin. 1. Lower extremity cellulitis/multiple ulcerations. Patient states that she has not been able to take her socks off for some time. Her feet does not appear to be infected at this time however, patient was placed on doxycycline as precaution as the patient socks have been on for unknown amount of time and that maggots were found in the wounds. We will continue this at this time. Patient will need wound care consultation which has been placed today. Patient will most likely need either placement or home care referral. Patient will need to work with physical therapy. 2. Hypertension continue home medication. 3. Rheumatoid arthritis. Continue home medications. 4. Nicotine dependence. Patient does not want a nicotine patch. DVT Prophylaxis: Lovenox Disposition: Pending improvement in the patient's wounds VS,Fishbone, I+O VS, Fishbone, I+O Laboratory Tests 10/10/20 17:28 10/10/20 19:34 10/11/20 07:51 Vital Signs Date Time Temp Pulse Resp B/P (MAP) Pulse Ox O2 Delivery O2 Flow Rate FiO2 10/10/20 23:50 97.2 84 18 144/73 (96) 95 Room Air I&O- Last 24 Hours up to 6 AM 10/11/20 06:00 Intake Total 170 ml Balance 170 ml ESTEFANIA WORKMAN DO Oct 11, 2020 14:33
[2020-10-11 20:52] VITALS: BP 116/44
[2020-10-12] MEDS: ACETAMINOPHEN TAB 650MG DOSE (2X325MG) PO PRN ×2 (01:32→20:27)
[2020-10-12 05:16] LABS: HEMATOCRIT 29.7 % (36.0-47.0); HEMOGLOBIN 9.8 g/dl (12.0-15.5); MEAN CORPUSCULAR HEMOGLOBIN 32.3 pg (27.0-33.0); PLATELET COUNT, AUTOMATED 133 10^3/uL (150-450); RED BLOOD COUNT 3.03 10^6/uL (4.00-5.40); WHITE BLOOD COUNT 7.1 10^3/uL (4.0-10.0)
[2020-10-12 05:44] LABS: BLOOD UREA NITROGEN 21 MG/DL (7-18); CALCIUM LEVEL 8.3 MG/DL (8.8-10.2); CARBON DIOXIDE LEVEL 30 MEQ/L (21-32); CHLORIDE LEVEL 110 MEQ/L (98-107); CREATININE FOR GFR 0.91 MG/DL (0.55-1.30); GLOMERULAR FILTRATION RATE > 60.0 (>32); GLUCOSE, FASTING 93 MG/DL (70-100); POTASSIUM SERUM 4.4 MEQ/L (3.5-5.1); SODIUM LEVEL 144 MEQ/L (136-145)
[2020-10-12] MEDS: ENOXAPARIN 30MG/0.3ML SYRINGE (J1650 PER 10MG) SC SCH (09:12)
[2020-10-12] MEDS: DOXYCYCLINE HYCLATE 100 MG in D5W MINI-BAG PLUS 100 ML IV SCH (09:12)
[2020-10-12] MEDS: DOCUSATE SODIUM 100MG CAPSULE PO SCH ×2 (09:12→20:27)
[2020-10-12 14:00] VITALS: BP 116/53
--- NOTE | 2020-10-12 15:17 | IPNPDOC ---
Text Note Date of Service The patient was seen on 10/12/20. NOTE Subjective: Patient is an 89-year-old female presented to the hospital with foot pain. Patient states she has been unable to bend over and change her socks for quite some time. Patient had socks that were crusted to her legs and have removed with scissors and when they removed many layers of skin and maggots in her right heel were found. Patient states her feet are painful. Patient states that she is otherwise feeling well at this time. Physical exam: Vitals: See below General: Alert and oriented female who was laying in bed when I walked in the room. Patient not appear to be in any acute distress. HEENT: Normocephalic, atraumatic, moist mucous membranes. Neck: No lymphadenopathy or thyromegaly Cardiac: Regular rate and rhythm, no murmurs, normal S1, normal S2 Pulm: Clear to auscultation bilaterally. No wheezes, rhonchi, rales Abd: Nondistended, nontender to palpation, normal bowel sounds Ext: Thickened scaling of the skin from the mid persaud down through the feet with swelling bilateral lower extremities with maceration of the skin around the right anterior ankle. There is severe hallux valgus deformities of the bilateral great toes. No areas of purulent drainage. Labs: See below Imaging: No new imaging has been performed Assessment/plan: 89-year-old female presented with foot pain and inability to care for self as she is unable to take her socks off and showed maceration with possible infection of the skin. 1. Lower extremity wounds. Patient has not been able to care for self for quite some time. Patient's feet do not appear infected at this time. Doxycycline is been stopped. Dr. Hudson of [facility] did a video conference for the patient today and recommended putting Aquaphor on the scales and gently scraping with a washcloth to remove some of the scale. He says that this is mostly venous disease and there is not any indication for antibiotics at this time. 2. Hypertension. Continue home medications. 3. Rheumatoid arthritis. Continue home medications. 4. Nicotine dependence. Patient is now on nicotine patch. 5. Failure to thrive. Patient is very thin appearing with some bitemporal wasting and has a BMI of 16.7. Ensure and amino acids have been added to her diet as the patient does not like to eat very much. Patient's breakfast today was toast. DVT Prophylaxis: Lovenox Disposition: Pending provement in the patient's wound and most likely placement. VS,Fishbone, I+O VS, Fishbone, I+O Laboratory Tests 10/12/20 04:54 Vital Signs Date Time Temp Pulse Resp B/P (MAP) Pulse Ox O2 Delivery O2 Flow Rate FiO2 10/12/20 14:00 98.5 57 18 116/53 (74) 98 Room Air I&O- Last 24 Hours up to 6 AM 10/12/20 06:00 Intake Total 920 ml Output Total 425 ml Balance 495 ml ESTEFANIA WORKMAN DO Oct 12, 2020 15:17
[2020-10-12] MEDS: DIMETHICONE 2% OINTMENT(VANICREAM) 70GM TUBE TOP SCH (21:00)
[2020-10-12 22:00] VITALS: BP 111/48
[2020-10-13 05:46] LABS: HEMATOCRIT 29.4 % (36.0-47.0); HEMOGLOBIN 9.7 g/dl (12.0-15.5); MEAN CORPUSCULAR HEMOGLOBIN 32.7 pg (27.0-33.0); PLATELET COUNT, AUTOMATED 138 10^3/uL (150-450); RED BLOOD COUNT 2.97 10^6/uL (4.00-5.40); WHITE BLOOD COUNT 5.7 10^3/uL (4.0-10.0)
[2020-10-13 06:00] VITALS: BP 108/45
[2020-10-13 06:05] LABS: BLOOD UREA NITROGEN 27 MG/DL (7-18); CALCIUM LEVEL 7.7 MG/DL (8.8-10.2); CARBON DIOXIDE LEVEL 27 MEQ/L (21-32); CHLORIDE LEVEL 111 MEQ/L (98-107); GLOMERULAR FILTRATION RATE > 60.0 (>32); GLUCOSE, FASTING 88 MG/DL (70-100); POTASSIUM SERUM 4.2 MEQ/L (3.5-5.1); SODIUM LEVEL 143 MEQ/L (136-145)
--- NOTE | 2020-10-13 08:22 | CR ---
[facility] Consult was via telemedicine. DATE: 10/12/2020 REQUESTING PHYSICIAN: Dr. Kain Reilly REASON FOR CONSULTATION: Lower extremity wound care. Wound care telemedicine provides a visual assessment of a wound or wounds without the benefit of physical examination. This can assist with establishing a diagnosis and etiology. This allows for an initial treatment plan. As wounds often change, it may be necessary to modify the original care. Our recommendation is periodic wound reassessment to monitor treatment. Failure to comply may result in non healing of the wound, possible complications and/or a poor outcome. The recommendations given will serve as treatment options. As I will not be following this patient, this care plan will require the attending physician to give and sign the orders. Upon discharge or transfer, outpatient follow up can be scheduled at our [facility]. HISTORY OF PRESENT ILLNESS: An 89-year-old female who lives alone was found by her family on the floor, covered in feces with significant swelling of her lower extremities, unable to care for herself. She was brought to the hospital for admission and eventually will probably need permanent placement. On inspection, there is evidence of chronic venous stasis disease with hemosiderosis bilaterally. Both right and left lower extremities appear decompressed with resolution of gravitational dependent edema and inactivity as evidenced by wrinkling of the skin of her lower extremities. On the right lower extremity, anterior ankle area, there is an area of abrasion which shows intact skin bridges. There is no evidence of drainage from this site, and the periwound shows no erythema, maceration or ischemic change. There is diffuse and excessive scaling of the skin involving her right and left lower extremities and feet both dorsal and plantar aspects. This represents a chronic buildup of devitalized superficial epidermis. On the plantar surface there is callous formation localized over the third metatarsal head It is difficult to ascertain whether or not there is an actual wound at the base of the callus. The patient appears quite thin and malnourished and her nutritional status should also be addressed. TREATMENT: Aquaphor moisturizing lotion to be applied to right and left lower extremities and feet, morning and night. Using a washcloth, gentle abrasion should be performed to remove any superficial scales. This is important for wound care in that biofilm is present under the scales and this will prevent any healthy epidermal regeneration. Any callous formation that can be easily removed should be. A podiatry consult should be obtained to further evaluate this It is also noted that the patient has severe bunion deformities of both right and left feet involving the great toes. Nail care is also indicated. There is no indication for antibiotic therapy. The patient's diet should be supplemented with Ensure and Fernando. Appropriate customized footwear should be obtained. The case was discussed with Dr. Reilly and if the patient is placed, arrangements to be evaluated at our Wound Care Center can be made. MAXINE
[2020-10-13] MEDS: DOCUSATE SODIUM 100MG CAPSULE PO SCH ×2 (10:01→22:08)
[2020-10-13] MEDS: DIMETHICONE 2% OINTMENT(VANICREAM) 70GM TUBE TOP SCH ×2 (10:01→22:08)
[2020-10-13] MEDS: ENOXAPARIN 30MG/0.3ML SYRINGE (J1650 PER 10MG) SC SCH (10:02)
[2020-10-13 14:00] VITALS: BP 115/40
--- NOTE | 2020-10-13 14:52 | IPNPDOC ---
Text Note Date of Service The patient was seen on 10/13/20. NOTE Subjective: Patient is an 89-year-old female who presented to the hospital with foot pain. Patient states that she is unable to bend over and change her socks for quite some time. We are unsure of exactly how long her socks have been on. When the socks were removed patient had many layers of skin and maggots in her right heel. Patient states her feet are painful but are feeling better. Patient states that she is feeling better. Review of systems: General: Patient denies fevers HEENT: Patient denies headaches Cardiovascular: Patient denies chest pain Respiratory: Patient denies shortness of breath, cough Physical exam: Vitals: See below General: Alert and oriented female patient who was laying in bed when I walked in the room. Patient not appear to be in acute distress. HEENT: Normocephalic, atraumatic, moist mucous membranes. Neck: No lymphadenopathy or thyromegaly Cardiac: Regular rate and rhythm, no murmurs, normal S1, normal S2 Pulm: Clear to auscultation bilaterally. No wheezes, rhonchi, rales Abd: Nondistended, nontender to palpation, normal bowel sounds Ext: Thickened scaling of the skin with pink skin underneath from the mid persaud down through the feet. Patient has maceration of the skin of the right anterior ankle. Severe hallux deformities of bilateral great toes with calluses on the feet. No areas of purulent drainage. Labs: See below Imaging: No new imaging has been performed Assessment/plan: 89-year-old female presented with foot pain and inability to care for herself as she is unable to take her socks off. Patient had maceration and possible infection of the skin. 1. Lower extremity wounds. Patient is not be able to care for self or quite some time. Patient's feet do not appear infected so antibiotics were stopped. Dr. Hudson of [facility] did a video conference yesterday and recommended putting Aquaphor on the feet and legs and gently washing with a washcloth remove the scale. This is mostly venous disease in the socks causing the skin. No indication for antibiotics at this time. 2. Hypertension. Continue home medication. 3. Rheumatoid arthritis. Continue home medications. 4. Nicotine dependence. Patient does not want nicotine patch. 5. Failure to thrive. Patient is very thin appearing with bitemporal muscle wasting and a BMI of 16.7. Ensure and Fernando has been added to her diet. DVT Prophylaxis: Lovenox Disposition: Pending working with physical therapy. Patient has been made ALC today. VS,Fishbone, I+O VS, Fishbone, I+O Laboratory Tests 10/13/20 05:24 Vital Signs Date Time Temp Pulse Resp B/P (MAP) Pulse Ox O2 Delivery O2 Flow Rate FiO2 10/13/20 06:00 97.7 45 18 108/45 (66) 97 Room Air I&O- Last 24 Hours up to 6 AM 10/13/20 06:00 Intake Total 720 ml Output Total 275 ml Balance 445 ml ESTEFANIA WORKMAN DO Oct 13, 2020 14:52
[2020-10-13 21:24] VITALS: BP 115/43
[2020-10-13] MEDS: ACETAMINOPHEN TAB 650MG DOSE (2X325MG) PO PRN (23:52)
[2020-10-14 05:45] VITALS: BP 130/62
[2020-10-14 08:19] LABS: HEMATOCRIT 29.8 % (36.0-47.0); HEMOGLOBIN 9.8 g/dl (12.0-15.5); MEAN CORPUSCULAR HEMOGLOBIN 32.6 pg (27.0-33.0); MEAN CORPUSCULAR HGB CONC 32.9 g/dl (32.0-36.5); PLATELET COUNT, AUTOMATED 141 10^3/uL (150-450); RED BLOOD COUNT 3.01 10^6/uL (4.00-5.40); WHITE BLOOD COUNT 6.1 10^3/uL (4.0-10.0)
[2020-10-14] MEDS: DOCUSATE SODIUM 100MG CAPSULE PO SCH ×2 (08:44→20:01)
[2020-10-14] MEDS: ENOXAPARIN 30MG/0.3ML SYRINGE (J1650 PER 10MG) SC SCH (08:44)
[2020-10-14] MEDS: DIMETHICONE 2% OINTMENT(VANICREAM) 70GM TUBE TOP SCH ×2 (08:44→20:09)
[2020-10-14 08:55] LABS: BLOOD UREA NITROGEN 26 MG/DL (7-18); CREATININE FOR GFR 0.71 MG/DL (0.55-1.30); GLOMERULAR FILTRATION RATE > 60.0 (>32); GLUCOSE, FASTING 89 MG/DL (70-100)
[2020-10-14 08:56] LABS: CARBON DIOXIDE LEVEL 25 MEQ/L (21-32); CHLORIDE LEVEL 113 MEQ/L (98-107); POTASSIUM SERUM 4.6 MEQ/L (3.5-5.1); SODIUM LEVEL 144 MEQ/L (136-145)
[2020-10-14 14:00] VITALS: BP 129/61
[2020-10-14] MEDS: ACETAMINOPHEN TAB 650MG DOSE (2X325MG) PO PRN (20:02)
[2020-10-14 22:00] VITALS: BP 113/56
[2020-10-15 04:45] VITALS: BP 110/39
[2020-10-15] MEDS: DOCUSATE SODIUM 100MG CAPSULE PO SCH ×2 (08:49→21:23)
[2020-10-15] MEDS: ENOXAPARIN 30MG/0.3ML SYRINGE (J1650 PER 10MG) SC SCH (08:49)
[2020-10-15 08:50] LABS: HEMATOCRIT 30.1 % (36.0-47.0); HEMOGLOBIN 9.8 g/dl (12.0-15.5); MEAN CORPUSCULAR HEMOGLOBIN 32.5 pg (27.0-33.0); MEAN CORPUSCULAR HGB CONC 32.6 g/dl (32.0-36.5); MEAN CORPUSCULAR VOLUME 99.7 fl (80.0-96.0); PLATELET COUNT, AUTOMATED 143 10^3/uL (150-450); RED BLOOD COUNT 3.02 10^6/uL (4.00-5.40); WHITE BLOOD COUNT 6.6 10^3/uL (4.0-10.0)
[2020-10-15] MEDS: DIMETHICONE 2% OINTMENT(VANICREAM) 70GM TUBE TOP SCH ×2 (08:50→21:24)
[2020-10-15 09:10] LABS: BLOOD UREA NITROGEN 28 MG/DL (7-18); CARBON DIOXIDE LEVEL 26 MEQ/L (21-32); CHLORIDE LEVEL 112 MEQ/L (98-107); CREATININE FOR GFR 0.88 MG/DL (0.55-1.30); GLOMERULAR FILTRATION RATE > 60.0 (>32); GLUCOSE, FASTING 119 MG/DL (70-100); SODIUM LEVEL 144 MEQ/L (136-145)
[2020-10-15 09:11] LABS: CALCIUM LEVEL 8.2 MG/DL (8.8-10.2); MAGNESIUM LEVEL 2.1 MG/DL (1.8-2.4)
[2020-10-15 14:00] VITALS: BP 108/46
[2020-10-15] MEDS: ACETAMINOPHEN TAB 650MG DOSE (2X325MG) PO PRN (21:24)
[2020-10-15 22:00] VITALS: BP 109/46
[2020-10-16 06:00] VITALS: BP 110/48
[2020-10-16 07:10] LABS: HEMATOCRIT 32.7 % (36.0-47.0); HEMOGLOBIN 10.5 g/dl (12.0-15.5); MEAN CORPUSCULAR HEMOGLOBIN 32.2 pg (27.0-33.0); MEAN CORPUSCULAR HGB CONC 32.1 g/dl (32.0-36.5); MEAN CORPUSCULAR VOLUME 100.3 fl (80.0-96.0); PLATELET COUNT, AUTOMATED 158 10^3/uL (150-450); RED BLOOD COUNT 3.26 10^6/uL (4.00-5.40); WHITE BLOOD COUNT 7.3 10^3/uL (4.0-10.0)
[2020-10-16 07:27] LABS: BLOOD UREA NITROGEN 29 MG/DL (7-18); CALCIUM LEVEL 8.4 MG/DL (8.8-10.2); CARBON DIOXIDE LEVEL 23 MEQ/L (21-32); CHLORIDE LEVEL 112 MEQ/L (98-107); CREATININE FOR GFR 0.65 MG/DL (0.55-1.30); GLOMERULAR FILTRATION RATE > 60.0 (>32); GLUCOSE, FASTING 87 MG/DL (70-100); MAGNESIUM LEVEL 2.3 MG/DL (1.8-2.4); POTASSIUM SERUM 5.1 MEQ/L (3.5-5.1); SODIUM LEVEL 142 MEQ/L (136-145)
[2020-10-16] MEDS: DOCUSATE SODIUM 100MG CAPSULE PO SCH ×2 (08:24→20:31)
[2020-10-16] MEDS: ENOXAPARIN 30MG/0.3ML SYRINGE (J1650 PER 10MG) SC SCH (08:24)
[2020-10-16] MEDS: DIMETHICONE 2% OINTMENT(VANICREAM) 70GM TUBE TOP SCH ×2 (08:24→20:31)
[2020-10-16] MEDS: ACETAMINOPHEN TAB 650MG DOSE (2X325MG) PO PRN (22:23)
[2020-10-17 06:00] VITALS: BP 117/53
[2020-10-17 06:11] LABS: HEMATOCRIT 29.4 % (36.0-47.0); HEMOGLOBIN 9.5 g/dl (12.0-15.5); MEAN CORPUSCULAR HEMOGLOBIN 32.3 pg (27.0-33.0); MEAN CORPUSCULAR HGB CONC 32.3 g/dl (32.0-36.5); PLATELET COUNT, AUTOMATED 144 10^3/uL (150-450); RED BLOOD COUNT 2.94 10^6/uL (4.00-5.40); WHITE BLOOD COUNT 6.7 10^3/uL (4.0-10.0)
[2020-10-17 06:43] LABS: BLOOD UREA NITROGEN 27 MG/DL (7-18); CALCIUM LEVEL 8.1 MG/DL (8.8-10.2); CARBON DIOXIDE LEVEL 25 MEQ/L (21-32); CHLORIDE LEVEL 114 MEQ/L (98-107); CREATININE FOR GFR 0.63 MG/DL (0.55-1.30); GLOMERULAR FILTRATION RATE > 60.0 (>32); GLUCOSE, FASTING 86 MG/DL (70-100); MAGNESIUM LEVEL 2.2 MG/DL (1.8-2.4); POTASSIUM SERUM 4.2 MEQ/L (3.5-5.1); SODIUM LEVEL 142 MEQ/L (136-145)
[2020-10-17] MEDS: ENOXAPARIN 30MG/0.3ML SYRINGE (J1650 PER 10MG) SC SCH (10:36)
[2020-10-17] MEDS: DIMETHICONE 2% OINTMENT(VANICREAM) 70GM TUBE TOP SCH (10:37)
[2020-10-17] MEDS: DOCUSATE SODIUM 100MG CAPSULE PO SCH (10:37)
[2020-10-17] MEDS ORDERED: DULC5TAB PO (12:12)
[2020-10-17] MEDS ORDERED: MOM30SS2 PO (12:12)
--- NOTE | 2020-10-17 19:08 | DS.PDOC ---
Discharge Summary General Date of Admission Oct 10, 2020 at 21:03 Date of Discharge 10/17/20 Discharge Summary PROCEDURES PERFORMED DURING STAY: [None]. ADMITTING DIAGNOSES: Lower extremity wounds Hypertension Rheumatoid arthritis Nicotine dependence Failure to thrive DISCHARGE DIAGNOSES: Lower extremity wounds Hypertension Rheumatoid arthritis Nicotine dependence Failure to thrive Cachexia/protein malnutrition COMPLICATIONS/CHIEF COMPLAINT: Cellulitis, Venous Statis Ulcer. HISTORY OF PRESENT ILLNESS: This is an 89 y/o female with a pmh of htn, gerd, ra and copd who presents to our ED on 10/10 with a cc of lower leg swelling that has been going on since her last hip operation. Patient tells me that she does not know exactly when her operation was. Most recent hip operation I can find in our system was in august of 2017. Patient states that ever since her hip injury, she has been unable to bend down to change her socks, and does not know the last time her socks were changed. According to ED staff, patients socks were crusted to her legs and when removed showed many layers of skin and maggots in the right heel. Patient tells me that her legs are somewhat painful. Patient tells me that she lives alone and she is able to get around her home with a walker for assistance. Patient states that family comes to the home to help her get groceries and care for herself. Patient states that she is able to cook, clean and bathe herself. Patient states that besides her legs, she feels fine. HOSPITAL COURSE: During the hospital stay following issue addressed 1. Lower extremity wounds. Patient is not be able to care for self or quite some time. Patient's feet do not appear infected so antibiotics were stopped. Dr. Hudson of [facility] did a video conference yesterday and recommended putting Aquaphor on the feet and legs and gently washing with a washcloth remove the scale. This is mostly venous disease in the socks causing the skin. No indication for antibiotics at this time. 2. Hypertension. Continue home medication. 3. Rheumatoid arthritis. Continue home medications. 4. Nicotine dependence . Patient does not want nicotine patch. 5. Failure to thrive. Patient is very thin appearing with bitemporal muscle wasting and a BMI of 16.7. Ensure and Fernando has been added to her diet. DISCHARGE MEDICATIONS: Please see below. ALLERGIES: Please see below. PHYSICAL EXAMINATION ON DISCHARGE: VITAL SIGNS: Please see below. Vitals: See below General: Alert and oriented female patient who was laying in bed when I walked in the room. Patient not appear to be in acute distress. HEENT: Normocephalic, atraumatic, moist mucous membranes. Neck: No lymphadenopathy or thyromegaly Cardiac: Regular rate and rhythm, no murmurs, normal S1, normal S2 Pulm: Clear to auscultation bilaterally. No wheezes, rhonchi, rales Abd: Nondistended, nontender to palpation, normal bowel sounds Ext: Thickened scaling of the skin with pink skin underneath from the mid persaud down through the feet. Patient has maceration of the skin of the right anterior ankle. Severe hallux deformities of bilateral great toes with calluses on the feet. No areas of purulent drainage. LABORATORY DATA: Please see below. PROGNOSIS: Fair ACTIVITY: [As tolerated]. DIET: Cardiac DISPOSITION: 01 Home, Self-Care. ITEMS TO FOLLOWUP ON ON OUTPATIENT: Follow-up with PCP and wound care DISCHARGE CONDITION: [Stable]. TIME SPENT ON DISCHARGE:40minutes. Vital Signs/I&Os Vital Signs Date Time Temp Pulse Resp B/P (MAP) Pulse Ox O2 Delivery O2 Flow Rate FiO2 10/17/20 06:00 98.2 64 20 117/53 (74) 97 Room Air l I&O- Last 24 Hours up to 6 AM 10/17/20 06:00 Intake Total 1430 ml Output Total 1350 ml Balance 80 ml Laboratory Data Labs 24H Laboratory Tests 2 10/17/20 05:56: Nucleated Red Blood Cells % (auto) 0.0, Anion Gap 3L, Glomerular Filtration Rate > 60.0, Calcium Level 8.1L, Magnesium Level 2.2 CBC/BMP Laboratory Tests 10/17/20 05:56 Microbiology Microbiology 10/10/20 Blood Culture - Final, Complete NO GROWTH AFTER 5 DAYS 10/10/20 Blood Culture - Final, Complete NO GROWTH AFTER 5 DAYS Discharge Medications Scheduled Bisacodyl (Dulcolax) 5 Mg Tablet.dr, 4 TAB PO DAILY for constipation hold if more than 2 bowel movements in a day Cholecalciferol (Vitamin D3) (Vitamin D3) 50 Mcg Capsule, 50 MCG PO DAILY, (Reported) Furosemide (Furosemide) 20 Mg Tablet, 20 MG PO DAILY, (Reported) Hydroxychloroquine Sulfate (Hydroxychloroquine Sulfate) 200 Mg Tablet, 200 MG PO DAILY, (Reported) Loratadine (Loratadine) 10 Mg Tablet, 10 MG PO DAILY, (Reported) Scheduled PRN Acetaminophen (Tylenol) 325 Mg Tablet, 325 MG PO QID PRN for MINOR DISCOMFORT, (Reported) Magnesium Hydroxide (Milk of Magnesia) 400 Mg/5 Ml Oral.susp, 30 ML PO DAILY PRN for CONSTIPATION Peg 400/Hypromellose/Glycerin (Visine Tears Drops) 15 Ml Drops, 1 DROP OU QID PRN for DRY EYES, (Reported) Allergies Coded Allergies: Penicillins (Verified Allergy, Unknown, 10/10/20) Sulfa (Sulfonamide Antibiotics) (Verified Allergy, Unknown, 10/10/20) DIVINA PORTER DO Oct 17, 2020 19:08
== END 2020-10-17 16:40 | disposition home health service (06) | DRG 299 ==
LOC: M ED 14:35 → M ED INP 21:03 → M MS5PR 23:54
PROVIDERS: ADMIT Family Medicine; ATTEND Internal Medicine
DX: I87.2 Venous insufficiency (chronic) (peripheral) (principal); E43 Unspecified severe protein-calorie malnutrition; Z68.1 Body mass index [BMI] 19.9 or less, adult; L03.116 Cellulitis of left lower limb; L97.808 Non-pressure chronic ulcer of other part of unspecified lower leg with other specified severity; I10 Essential (primary) hypertension; R23.4 Changes in skin texture; L84 Corns and callosities; E83.19 Other disorders of iron metabolism; M21.611 Bunion of right foot; M21.612 Bunion of left foot; K21.9 Gastro-esophageal reflux disease without esophagitis; F17.210 Nicotine dependence, cigarettes, uncomplicated; R62.7 Adult failure to thrive; B87.1 Wound myiasis; M06.9 Rheumatoid arthritis, unspecified; Z96.642 Presence of left artificial hip joint; Z96.652 Presence of left artificial knee joint; Z20.822 Contact with and (suspected) exposure to COVID-19; Z79.899 Other long term (current) drug therapy; Z88.0 Allergy status to penicillin; Z88.2 Allergy status to sulfonamides

== ENCOUNTER → 2020-12-11 | Outpatient (REF) | payer MEDICARE ==
[~2020-12-11] MED LIST changes: +ACET-907 PO; +DULC5TAB PO; +FURO20TA2 PO; +HYDR-3782 PO; +LORA-674 PO; +MOM30SS2 PO; +VITA200016 PO; +[UNRECOGNIZED DRUG - CODE] OU
== END ==
LOC: M LAB REF 16:59
PROVIDERS: ATTEND Internal Medicine
DX: M06.9 Rheumatoid arthritis, unspecified (principal)

== ENCOUNTER 2021-01-23 17:54 | Inpatient (IN) | payer MEDICARE, MEDICAID ==
[~2021-01-23] VITALS: Ht 165.1 cm; Wt 42.3 kg
[2021-01-23] MEDS ORDERED: TORS10TA3 (18:16)
[2021-01-23 21:11] LABS: BASO % 0.2 % (0.0-1.0); EOS # 0.1 10^3/uL (0.0-0.5); EOS % 1.1 % (0.0-3.0); LYMPH # 1.3 10^3/uL (1.5-5.0); LYMPH % 11.5 % (24.0-44.0); MEAN CORPUSCULAR HEMOGLOBIN 31.3 pg (27.0-33.0); MEAN CORPUSCULAR HGB CONC 32.4 g/dl (32.0-36.5); MEAN CORPUSCULAR VOLUME 96.4 fl (80.0-96.0); MONO # 1.1 10^3/uL (0.0-0.8); MONO % 9.4 % (2.0-8.0); NEUTROPHILS % 77.5 % (36.0-66.0); PLATELET COUNT, AUTOMATED 221 10^3/uL (150-450); RED BLOOD COUNT 3.84 10^6/uL (4.00-5.40); WHITE BLOOD COUNT 11.6 10^3/uL (4.0-10.0)
[2021-01-23 21:33] LABS: ALBUMIN 3.4 GM/DL (3.2-5.2); BILIRUBIN,DIRECT 0.3 MG/DL (0.0-0.2); BILIRUBIN,TOTAL 0.8 MG/DL (0.2-1.0); C REACTIVE PROTEIN QUANTITATIV 2.19 MG/DL (0.00-0.30); CREATININE FOR GFR 1.11 MG/DL (0.55-1.30); GLOMERULAR FILTRATION RATE 49.4 (>32); POTASSIUM SERUM 3.4 MEQ/L (3.5-5.1); TOTAL PROTEIN 6.4 GM/DL (6.4-8.2)
[2021-01-23 21:58] LABS: ERYTHROCYTE SEDIMENTATION RATE 28 mm/hr (0-30)
[2021-01-23] MEDS ORDERED: NORCO, ANEXSIA 5/325MG TABLET (HYDROcodone/ACETAMINOPHEN) PO ONE (22:15)
[2021-01-23] MEDS ORDERED: ceFAZolin SOD 1 GM in D5W MINI-BAG PLUS 50 ML IV ONE (22:50)
[2021-01-24] VITALS (8 sets, daily range): BP systolic 81–96; BP diastolic 38–65
[2021-01-24 00:09] LABS: RSV AMPLIFICATION NEGATIVE (NEGATIVE)
[2021-01-24] MEDS ORDERED: POLYOPD OU (01:04)
[2021-01-24] MEDS ORDERED: META28.32 PO (01:04)
[2021-01-24] MEDS ORDERED: ENSULIQ8 PO (01:04)
[2021-01-24] MEDS ORDERED: TORS10TA3 PO (01:04)
[2021-01-24] MEDS ORDERED: VIAC1CHW PO (01:04)
[2021-01-24] MEDS ORDERED: HOME MED LIST COMPLETE! XX SCH (01:05)
[2021-01-24] MEDS ORDERED: METAMUCIL (PSYLLIUM) PACKET PO PRN (01:10)
[2021-01-24] MEDS ORDERED: POLYVINYL ALCOHOL OPHTH SOLN 15 ML(LIQUITEARS) OU PRN (01:10)
[2021-01-24] MEDS ORDERED: NS 1,000 ML IV ONE (03:40)
[2021-01-24] MEDS ORDERED: POTASSIUM CHLORIDE 10MEQ SR TABLET PO ONE (03:40)
[2021-01-24] MEDS ORDERED: PROCHLORPERAZINE 10MG/2ML VIAL (J0780 PER 1) IV PRN (04:35)
[2021-01-24] MEDS: HYDROXYCHLOROQUINE 200 MG TAB PO SCH (08:13)
[2021-01-24] MEDS: VITAMIN D 1,000 INTERNATIONAL UNITS TABLET PO SCH (08:13)
[2021-01-24] MEDS: HEPARIN SOD (PORCINE) 5000UNITS/ML 1ML VIAL/SYRINGE SC SCH ×2 (08:13→20:24)
[2021-01-24] MEDS ORDERED: PROHANCE 279.3MG/ML 5ML VIAL As Ordered ONE (08:51)
[2021-01-24] MEDS ORDERED: TORSEMIDE 10 MG TABLET PO SCH (09:00)
[2021-01-24 11:02] LABS: BASO % 0.1 % (0.0-1.0); EOS % 0.5 % (0.0-3.0); HEMATOCRIT 33.9 % (36.0-47.0); HEMOGLOBIN 10.9 g/dl (12.0-15.5); LYMPH # 1.2 10^3/uL (1.5-5.0); LYMPH % 13.9 % (24.0-44.0); MEAN CORPUSCULAR HEMOGLOBIN 31.3 pg (27.0-33.0); MEAN CORPUSCULAR HGB CONC 32.2 g/dl (32.0-36.5); MEAN CORPUSCULAR VOLUME 97.4 fl (80.0-96.0); MONO # 0.6 10^3/uL (0.0-0.8); MONO % 7.5 % (2.0-8.0); NEUTROPHILS # 6.5 10^3/uL (1.5-8.5); NEUTROPHILS % 77.8 % (36.0-66.0); PLATELET COUNT, AUTOMATED 187 10^3/uL (150-450); RED BLOOD COUNT 3.48 10^6/uL (4.00-5.40); WHITE BLOOD COUNT 8.4 10^3/uL (4.0-10.0)
[2021-01-24 11:44] LABS: ALBUMIN 2.6 GM/DL (3.2-5.2); BILIRUBIN,TOTAL 0.8 MG/DL (0.2-1.0); CALCIUM LEVEL 8.3 MG/DL (8.8-10.2); CREATININE FOR GFR 0.94 MG/DL (0.55-1.30); GLOMERULAR FILTRATION RATE 59.8 (>32); POTASSIUM SERUM 3.5 MEQ/L (3.5-5.1); TOTAL PROTEIN 5.2 GM/DL (6.4-8.2)
[2021-01-24] MEDS: cefTRIAXone SOD 2 GM in D5W MINI-BAG PLUS 50 ML IV SCH (17:04)
[2021-01-24] MEDS: NS 1,000 ML IV SCH (17:04)
[2021-01-24] MEDS: LACTOBACILLUS ACIDOPHILUS CAP (BACID) PO SCH (17:05)
[2021-01-24] MEDS ORDERED: NS 500 ML IV ONE ×2 (19:05→23:50)
[2021-01-24] MEDS ORDERED: VANCOMYCIN HCL 1,000 MG, VIAL MATE ADAPTER 1 EACH in NS 250 ML IV ONE (20:00)
[2021-01-24] MEDS: ACETAMINOPHEN TAB 650MG DOSE (2X325MG) PO PRN (20:24)
[2021-01-24] MEDS ORDERED: MIDODRINE 5 MG TAB PO ONE (21:40)
[2021-01-25 01:00] VITALS: BP 96/42
[2021-01-25] MEDS ORDERED: ceFAZolin SOD 1 GM in D5W MINI-BAG PLUS 50 ML IV SCH (02:00)
[2021-01-25 04:55] VITALS: BP 105/45
[2021-01-25] MEDS: NS 1,000 ML IV SCH ×3 (05:00→22:31)
[2021-01-25 06:59] LABS: BASO % 0.2 % (0.0-1.0); EOS # 0.3 10^3/uL (0.0-0.5); EOS % 5.3 % (0.0-3.0); HEMATOCRIT 27.5 % (36.0-47.0); LYMPH # 2.1 10^3/uL (1.5-5.0); LYMPH % 37.7 % (24.0-44.0); MEAN CORPUSCULAR HEMOGLOBIN 32.2 pg (27.0-33.0); MEAN CORPUSCULAR HGB CONC 31.6 g/dl (32.0-36.5); MEAN CORPUSCULAR VOLUME 101.9 fl (80.0-96.0); MONO # 0.5 10^3/uL (0.0-0.8); MONO % 8.3 % (2.0-8.0); NEUTROPHILS # 2.7 10^3/uL (1.5-8.5); NEUTROPHILS % 48.1 % (36.0-66.0); PLATELET COUNT, AUTOMATED 154 10^3/uL (150-450); WHITE BLOOD COUNT 5.6 10^3/uL (4.0-10.0)
[2021-01-25 07:13] LABS: HEMOGLOBIN 8.7 g/dl (12.0-15.5)
[2021-01-25 07:22] LABS: BLOOD UREA NITROGEN 27 MG/DL (7-18); CALCIUM LEVEL 7.1 MG/DL (8.8-10.2); CARBON DIOXIDE LEVEL 26 MEQ/L (21-32); CHLORIDE LEVEL 114 MEQ/L (98-107); CREATININE FOR GFR 0.78 MG/DL (0.55-1.30); GLOMERULAR FILTRATION RATE > 60.0 (>32); GLUCOSE, FASTING 78 MG/DL (70-100); POTASSIUM SERUM 4.2 MEQ/L (3.5-5.1); SODIUM LEVEL 145 MEQ/L (136-145)
[2021-01-25] MEDS ORDERED: VANCOMYCIN HCL 750 MG, VIAL MATE ADAPTER 1 EACH in NS 250 ML IV SCH (08:00)
[2021-01-25] MEDS: VITAMIN D 1,000 INTERNATIONAL UNITS TABLET PO SCH (10:13)
[2021-01-25] MEDS: MIDODRINE 5 MG TAB PO SCH ×3 (10:13→18:00)
[2021-01-25] MEDS: HYDROXYCHLOROQUINE 200 MG TAB PO SCH (10:13)
[2021-01-25] MEDS: ACETAMINOPHEN TAB 650MG DOSE (2X325MG) PO PRN ×2 (10:14→22:32)
[2021-01-25] MEDS: HEPARIN SOD (PORCINE) 5000UNITS/ML 1ML VIAL/SYRINGE SC SCH ×2 (10:14→22:31)
[2021-01-25] MEDS: LACTOBACILLUS ACIDOPHILUS CAP (BACID) PO SCH ×2 (10:14→17:10)
[2021-01-25 14:00] VITALS: BP 125/56
[2021-01-25] MEDS: cefTRIAXone SOD 2 GM in D5W MINI-BAG PLUS 50 ML IV SCH (17:10)
[2021-01-25 22:00] VITALS: BP 122/54
[2021-01-26 06:00] VITALS: BP 121/54
[2021-01-26 06:14] LABS: BASO % 0.3 % (0.0-1.0); EOS # 0.4 10^3/uL (0.0-0.5); EOS % 6.7 % (0.0-3.0); HEMATOCRIT 30.1 % (36.0-47.0); HEMOGLOBIN 9.5 g/dl (12.0-15.5); LYMPH # 2.2 10^3/uL (1.5-5.0); LYMPH % 33.1 % (24.0-44.0); MEAN CORPUSCULAR HEMOGLOBIN 31.1 pg (27.0-33.0); MEAN CORPUSCULAR HGB CONC 31.6 g/dl (32.0-36.5); MEAN CORPUSCULAR VOLUME 98.7 fl (80.0-96.0); MONO # 0.5 10^3/uL (0.0-0.8); MONO % 8.1 % (2.0-8.0); NEUTROPHILS # 3.4 10^3/uL (1.5-8.5); NEUTROPHILS % 51.3 % (36.0-66.0); PLATELET COUNT, AUTOMATED 169 10^3/uL (150-450); RED BLOOD COUNT 3.05 10^6/uL (4.00-5.40); WHITE BLOOD COUNT 6.5 10^3/uL (4.0-10.0)
[2021-01-26 06:38] LABS: BLOOD UREA NITROGEN 27 MG/DL (7-18); CALCIUM LEVEL 8.1 MG/DL (8.8-10.2); CARBON DIOXIDE LEVEL 26 MEQ/L (21-32); CHLORIDE LEVEL 113 MEQ/L (98-107); CREATININE FOR GFR 0.73 MG/DL (0.55-1.30); GLOMERULAR FILTRATION RATE > 60.0 (>32); GLUCOSE, FASTING 80 MG/DL (70-100); SODIUM LEVEL 145 MEQ/L (136-145)
[2021-01-26] MEDS: LACTOBACILLUS ACIDOPHILUS CAP (BACID) PO SCH ×2 (09:16→17:51)
[2021-01-26] MEDS: ACETAMINOPHEN TAB 650MG DOSE (2X325MG) PO PRN (09:16)
[2021-01-26] MEDS: VITAMIN D 1,000 INTERNATIONAL UNITS TABLET PO SCH (09:16)
[2021-01-26] MEDS: NS 1,000 ML IV SCH ×2 (09:17→20:30)
[2021-01-26] MEDS: HYDROXYCHLOROQUINE 200 MG TAB PO SCH (09:17)
[2021-01-26] MEDS: MIDODRINE 5 MG TAB PO SCH ×3 (09:17→16:00)
[2021-01-26] MEDS: HEPARIN SOD (PORCINE) 5000UNITS/ML 1ML VIAL/SYRINGE SC SCH ×2 (09:18→20:30)
[2021-01-26 13:29] VITALS: BP 120/53
[2021-01-26 14:00] VITALS: BP 122/55
[2021-01-26] MEDS: cefTRIAXone SOD 2 GM in D5W MINI-BAG PLUS 50 ML IV SCH (17:51)
[2021-01-26 20:22] VITALS: BP 101/48
[2021-01-26 22:30] VITALS: BP 106/52
[2021-01-27] MEDS: NS 1,000 ML IV SCH ×3 (02:47→20:39)
[2021-01-27 05:41] VITALS: BP 98/56
[2021-01-27 06:43] VITALS: BP 104/58
[2021-01-27] MEDS: DOXYCYCLINE HYCLATE 100 MG in D5W MINI-BAG PLUS 100 ML IV SCH ×2 (08:19→20:38)
[2021-01-27] MEDS: HEPARIN SOD (PORCINE) 5000UNITS/ML 1ML VIAL/SYRINGE SC SCH ×2 (08:21→20:38)
[2021-01-27] MEDS: LACTOBACILLUS ACIDOPHILUS CAP (BACID) PO SCH ×2 (08:23→17:55)
[2021-01-27] MEDS: MIDODRINE 5 MG TAB PO SCH ×3 (08:24→16:00)
[2021-01-27] MEDS: HYDROXYCHLOROQUINE 200 MG TAB PO SCH (08:24)
[2021-01-27] MEDS: VITAMIN D 1,000 INTERNATIONAL UNITS TABLET PO SCH (08:26)
[2021-01-27 14:00] VITALS: BP 144/66
[2021-01-27 14:58] LABS: HEMATOCRIT 32.1 % (36.0-47.0); MEAN CORPUSCULAR HEMOGLOBIN 31.8 pg (27.0-33.0); MEAN CORPUSCULAR HGB CONC 31.2 g/dl (32.0-36.5); MEAN CORPUSCULAR VOLUME 102.2 fl (80.0-96.0); PLATELET COUNT, AUTOMATED 190 10^3/uL (150-450); RED BLOOD COUNT 3.14 10^6/uL (4.00-5.40)
[2021-01-27] MEDS: MUPIROCIN 2% OINT 22 GM TUBE TOP SCH ×2 (16:17→20:38)
[2021-01-27] MEDS: ACETAMINOPHEN TAB 650MG DOSE (2X325MG) PO PRN ×2 (17:56→23:06)
[2021-01-27 22:00] VITALS: BP 130/57
[2021-01-28 04:45] VITALS: BP 117/58
[2021-01-28 06:21] VITALS: BP 118/60
[2021-01-28 06:45] LABS: BLOOD UREA NITROGEN 23 MG/DL (7-18); C REACTIVE PROTEIN QUANTITATIV 1.88 MG/DL (0.00-0.30); CALCIUM LEVEL 8.1 MG/DL (8.8-10.2); CARBON DIOXIDE LEVEL 23 MEQ/L (21-32); CHLORIDE LEVEL 117 MEQ/L (98-107); CREATININE FOR GFR 0.66 MG/DL (0.55-1.30); GLOMERULAR FILTRATION RATE > 60.0 (>32); GLUCOSE, FASTING 79 MG/DL (70-100); POTASSIUM SERUM 4.3 MEQ/L (3.5-5.1); SODIUM LEVEL 145 MEQ/L (136-145)
[2021-01-28] MEDS: LACTOBACILLUS ACIDOPHILUS CAP (BACID) PO SCH ×2 (08:46→17:07)
[2021-01-28] MEDS: ACETAMINOPHEN TAB 650MG DOSE (2X325MG) PO PRN ×2 (08:47→20:34)
[2021-01-28] MEDS: DOXYCYCLINE HYCLATE 100 MG in D5W MINI-BAG PLUS 100 ML IV SCH ×2 (08:48→20:32)
[2021-01-28] MEDS: MIDODRINE 5 MG TAB PO SCH ×3 (08:49→16:00)
[2021-01-28] MEDS: HEPARIN SOD (PORCINE) 5000UNITS/ML 1ML VIAL/SYRINGE SC SCH ×2 (08:49→20:33)
[2021-01-28] MEDS: HYDROXYCHLOROQUINE 200 MG TAB PO SCH (08:50)
[2021-01-28] MEDS: VITAMIN D 1,000 INTERNATIONAL UNITS TABLET PO SCH (08:50)
[2021-01-28] MEDS: MUPIROCIN 2% OINT 22 GM TUBE TOP SCH ×3 (08:51→20:33)
[2021-01-28] MEDS: NS 1,000 ML IV SCH ×2 (09:33→19:19)
[2021-01-28 14:00] VITALS: BP 124/57
[2021-01-28 22:00] VITALS: BP 126/57
[2021-01-29 06:00] VITALS: BP 124/59
[2021-01-29] MEDS: NS 1,000 ML IV SCH ×2 (06:14→17:04)
[2021-01-29 06:25] LABS: HEMATOCRIT 32.2 % (36.0-47.0); HEMOGLOBIN 10.3 g/dl (12.0-15.5); MEAN CORPUSCULAR HEMOGLOBIN 32.1 pg (27.0-33.0); MEAN CORPUSCULAR VOLUME 100.3 fl (80.0-96.0); PLATELET COUNT, AUTOMATED 177 10^3/uL (150-450); RED BLOOD COUNT 3.21 10^6/uL (4.00-5.40); WHITE BLOOD COUNT 7.2 10^3/uL (4.0-10.0)
[2021-01-29 06:57] LABS: BLOOD UREA NITROGEN 18 MG/DL (7-18); C REACTIVE PROTEIN QUANTITATIV 1.66 MG/DL (0.00-0.30); CALCIUM LEVEL 8.2 MG/DL (8.8-10.2); CARBON DIOXIDE LEVEL 22 MEQ/L (21-32); CHLORIDE LEVEL 118 MEQ/L (98-107); CREATININE FOR GFR 0.59 MG/DL (0.55-1.30); GLOMERULAR FILTRATION RATE > 60.0 (>32); GLUCOSE, FASTING 70 MG/DL (70-100); POTASSIUM SERUM 4.2 MEQ/L (3.5-5.1); SODIUM LEVEL 145 MEQ/L (136-145)
[2021-01-29 06:58] LABS: ERYTHROCYTE SEDIMENTATION RATE 30 mm/hr (0-30)
[2021-01-29] MEDS: MIDODRINE 5 MG TAB PO SCH ×3 (08:09→17:05)
[2021-01-29] MEDS: DOXYCYCLINE HYCLATE 100 MG in D5W MINI-BAG PLUS 100 ML IV SCH ×2 (08:09→20:00)
[2021-01-29] MEDS: HYDROXYCHLOROQUINE 200 MG TAB PO SCH (08:09)
[2021-01-29] MEDS: LACTOBACILLUS ACIDOPHILUS CAP (BACID) PO SCH ×2 (08:10→17:05)
[2021-01-29] MEDS: VITAMIN D 1,000 INTERNATIONAL UNITS TABLET PO SCH (08:10)
[2021-01-29] MEDS: HEPARIN SOD (PORCINE) 5000UNITS/ML 1ML VIAL/SYRINGE SC SCH ×2 (08:10→20:00)
[2021-01-29] MEDS: ACETAMINOPHEN TAB 650MG DOSE (2X325MG) PO PRN ×2 (08:10→13:49)
[2021-01-29] MEDS: MUPIROCIN 2% OINT 22 GM TUBE TOP SCH ×3 (08:11→20:00)
[2021-01-29 14:00] VITALS: BP 124/53
[2021-01-29 20:15] VITALS: BP 135/58
[2021-01-30] MEDS: NS 1,000 ML IV SCH (05:33)
[2021-01-30 05:40] VITALS: BP 133/55
[2021-01-30 05:57] LABS: HEMATOCRIT 32.6 % (36.0-47.0); HEMOGLOBIN 10.3 g/dl (12.0-15.5); MEAN CORPUSCULAR HEMOGLOBIN 31.9 pg (27.0-33.0); MEAN CORPUSCULAR HGB CONC 31.6 g/dl (32.0-36.5); MEAN CORPUSCULAR VOLUME 100.9 fl (80.0-96.0); PLATELET COUNT, AUTOMATED 192 10^3/uL (150-450); RED BLOOD COUNT 3.23 10^6/uL (4.00-5.40); WHITE BLOOD COUNT 7.7 10^3/uL (4.0-10.0)
[2021-01-30 06:19] LABS: ERYTHROCYTE SEDIMENTATION RATE 21 mm/hr (0-30)
[2021-01-30 06:24] LABS: BLOOD UREA NITROGEN 17 MG/DL (7-18); C REACTIVE PROTEIN QUANTITATIV 1.23 MG/DL (0.00-0.30); CALCIUM LEVEL 7.7 MG/DL (8.8-10.2); CARBON DIOXIDE LEVEL 18 MEQ/L (21-32); CHLORIDE LEVEL 119 MEQ/L (98-107); CREATININE FOR GFR 0.52 MG/DL (0.55-1.30); GLOMERULAR FILTRATION RATE > 60.0 (>32); GLUCOSE, FASTING 73 MG/DL (70-100); POTASSIUM SERUM 4.2 MEQ/L (3.5-5.1); SODIUM LEVEL 145 MEQ/L (136-145)
[2021-01-30] MEDS: MIDODRINE 5 MG TAB PO SCH ×3 (08:00→16:00)
[2021-01-30] MEDS: HYDROXYCHLOROQUINE 200 MG TAB PO SCH (08:37)
[2021-01-30] MEDS: VITAMIN D 1,000 INTERNATIONAL UNITS TABLET PO SCH (08:37)
[2021-01-30] MEDS: ACETAMINOPHEN TAB 650MG DOSE (2X325MG) PO PRN (08:37)
[2021-01-30] MEDS: LACTOBACILLUS ACIDOPHILUS CAP (BACID) PO SCH ×2 (08:37→17:40)
[2021-01-30] MEDS: DOXYCYCLINE HYCLATE 100 MG in D5W MINI-BAG PLUS 100 ML IV SCH (08:38)
[2021-01-30] MEDS: HEPARIN SOD (PORCINE) 5000UNITS/ML 1ML VIAL/SYRINGE SC SCH ×2 (08:38→19:57)
[2021-01-30] MEDS: MUPIROCIN 2% OINT 22 GM TUBE TOP SCH ×3 (08:38→19:56)
[2021-01-30] MEDS ORDERED: BENZOCAINE 10% 9GM TUBE (ANBESOL) TOP PRN (10:50)
[2021-01-30] MEDS ORDERED: DOXY100T PO (11:31)
[2021-01-30] MEDS ORDERED: RISATAB3 PO (11:31)
[2021-01-30] MEDS ORDERED: MIDO5TA PO (11:31)
[2021-01-30] MEDS: SODIUM BICARBONATE 325 MG TAB PO SCH ×2 (12:15→19:56)
[2021-01-30] MEDS: ACETAMINOPHEN 500 MG TAB PO SCH ×2 (12:16→19:55)
[2021-01-30] MEDS: IBUPROFEN 200MG TAB PO SCH ×2 (12:16→17:41)
[2021-01-30] MEDS: BENZOCAINE 10% 9GM TUBE (ANBESOL) MT SCH ×3 (12:20→19:57)
[2021-01-30] MEDS: ANALGESIC BALM CRM 3OZ TOP SCH ×3 (12:20→19:57)
[2021-01-30 14:43] VITALS: BP 121/49
[2021-01-30] MEDS: DOXYCYCLINE HYCLATE 100MG TABLET PO SCH (19:56)
[2021-01-30 22:00] VITALS: BP 129/62
[2021-01-31 06:00] VITALS: BP 126/59
[2021-01-31 06:16] LABS: HEMATOCRIT 32.7 % (36.0-47.0); HEMOGLOBIN 10.5 g/dl (12.0-15.5); MEAN CORPUSCULAR HEMOGLOBIN 31.6 pg (27.0-33.0); MEAN CORPUSCULAR HGB CONC 32.1 g/dl (32.0-36.5); MEAN CORPUSCULAR VOLUME 98.5 fl (80.0-96.0); PLATELET COUNT, AUTOMATED 202 10^3/uL (150-450); RED BLOOD COUNT 3.32 10^6/uL (4.00-5.40); WHITE BLOOD COUNT 8.8 10^3/uL (4.0-10.0)
[2021-01-31 06:44] LABS: BLOOD UREA NITROGEN 22 MG/DL (7-18); CALCIUM LEVEL 8.1 MG/DL (8.8-10.2); CARBON DIOXIDE LEVEL 22 MEQ/L (21-32); CHLORIDE LEVEL 117 MEQ/L (98-107); CREATININE FOR GFR 0.59 MG/DL (0.55-1.30); GLOMERULAR FILTRATION RATE > 60.0 (>32); GLUCOSE, FASTING 82 MG/DL (70-100); POTASSIUM SERUM 4.1 MEQ/L (3.5-5.1); SODIUM LEVEL 146 MEQ/L (136-145)
[2021-01-31] MEDS ORDERED: MUPI2OI TOP (07:45)
[2021-01-31] MEDS: MIDODRINE 5 MG TAB PO SCH (08:00)
[2021-01-31] MEDS ORDERED: ACETAMINOPHEN 500 MG TAB PO ONE (09:05)
[2021-01-31] MEDS ORDERED: CLINDAMYCIN 150MG CAPSULE PO SCH (09:05)
[2021-01-31] MEDS ORDERED: CLIN150C17 PO (09:09)
[2021-01-31] MEDS: HEPARIN SOD (PORCINE) 5000UNITS/ML 1ML VIAL/SYRINGE SC SCH (09:45)
[2021-01-31] MEDS: LACTOBACILLUS ACIDOPHILUS CAP (BACID) PO SCH (09:46)
[2021-01-31] MEDS: SODIUM BICARBONATE 325 MG TAB PO SCH (09:46)
[2021-01-31] MEDS: DOXYCYCLINE HYCLATE 100MG TABLET PO SCH (09:47)
[2021-01-31] MEDS: IBUPROFEN 200MG TAB PO SCH (09:47)
[2021-01-31] MEDS: VITAMIN D 1,000 INTERNATIONAL UNITS TABLET PO SCH (09:47)
[2021-01-31] MEDS: HYDROXYCHLOROQUINE 200 MG TAB PO SCH (09:47)
[2021-01-31] MEDS: ACETAMINOPHEN 500 MG TAB PO SCH (09:48)
[2021-01-31] MEDS: BENZOCAINE 10% 9GM TUBE (ANBESOL) MT SCH (09:48)
[2021-01-31] MEDS: ANALGESIC BALM CRM 3OZ TOP SCH (09:49)
[2021-01-31] MEDS: MUPIROCIN 2% OINT 22 GM TUBE TOP SCH (09:49)
[2021-01-31] MEDS ORDERED: IBUPROFEN 200MG TAB PO ONE (11:00)
== END 2021-01-31 10:45 | DRG 602 ==
LOC: M ED 21:58 → M ED INP 23:27 → ENRESERV 01-24 00:28 → M MS5PR 01-24 02:30
PROVIDERS: ADMIT Internal Medicine; ATTEND General Practice
PROC: 0HDNXZZ Extraction of Left Foot Skin, External Approach (ICD-10-PCS; principal; 2021-01-25)
PROC: 0HDRXZZ Extraction of Toe Nail, External Approach (ICD-10-PCS; 2021-01-25)
DX: L03.116 Cellulitis of left lower limb (principal); E43 Unspecified severe protein-calorie malnutrition; S32.10XA Unspecified fracture of sacrum, initial encounter for closed fracture; Z68.1 Body mass index [BMI] 19.9 or less, adult; M86.9 Osteomyelitis, unspecified; I10 Essential (primary) hypertension; M06.9 Rheumatoid arthritis, unspecified; J30.2 Other seasonal allergic rhinitis; M62.84 Sarcopenia; F03.90 Unspecified dementia, unspecified severity, without behavioral disturbance, psychotic disturbance, mood disturbance, and anxiety; J44.9 Chronic obstructive pulmonary disease, unspecified; Z20.822 Contact with and (suspected) exposure to COVID-19; I95.89 Other hypotension; R00.1 Bradycardia, unspecified; L60.0 Ingrowing nail; F17.210 Nicotine dependence, cigarettes, uncomplicated; Z96.642 Presence of left artificial hip joint; L89.152 Pressure ulcer of sacral region, stage 2; Z96.652 Presence of left artificial knee joint; Z79.899 Other long term (current) drug therapy; Z88.0 Allergy status to penicillin; Z88.2 Allergy status to sulfonamides; W19.XXXA Unspecified fall, initial encounter; Y93.E9 Activity, other interior property and clothing maintenance; Y92.013 Bedroom of single-family (private) house as the place of occurrence of the external cause; Y99.8 Other external cause status